=== PATIENT | male | born 1990 | race Caucasian/White ===

== ENCOUNTER 2017-08-10 18:29 | Emergency (ER) | payer BC, SELFPAY ==
[2017-08-10 18:30] VITALS: BP 171/102; PULSE 79; RESP 18; TEMP 37.2; O2SAT 99; BMI 35.0
--- NOTE | 2017-08-10 18:44 | CT_ITS ---
STUDY: CT ABDOMEN AND PELVIS WITHOUT CONTRAST REASON FOR EXAM: Male, 27 years old. Right flank pain RADIATION DOSAGE (If Supplied By Facility): CTDIvol = ( 19.17 ) mGy, DLP = ( 1029.68 ) mGycm TECHNIQUE: Transaxial images were obtained from the dome of the diaphragm to the symphysis pubis without oral contrast, and without intravenous contrast. Sagittal and coronal images were reconstructed. Individualized dose optimization techniques were used for this CT. COMPARISON: None. FINDINGS: The visualized lung bases are unremarkable. The visualized portions of the heart are within normal limits. There is a mildly enlarged periesophageal lymph node just proximal to the thoracoabdominal hiatus. There is also a small node in the vicinity of the celiac artery origin Normal liver. Normal gallbladder and extrahepatic biliary system. Nonspecific prominence of the spleen. Normal pancreas. Normal bilateral adrenal glands. Mild right renal pelvocaliectasis and dilatation of the proximal ureter secondary to a calculus in the mid ureter measuring approximately 3.5 mm size Normal left kidney. Normal visualized stomach. Normal small intestine. Normal colon. The appendix is visualized and appears normal. Normal abdominal aorta. Normal inferior vena cava. Normal retroperitoneum. Incompletely distended diffusely thick-walled bladder of uncertain significance. Moderate-sized left inguinal hernia containing fat is noted.. Normal osseous structures. CT/Abdomen/Pelvis without Cont IMPRESSION: Mild right hydroureteronephrosis secondary to a calculus in the mid ureter measuring approximately 3.5 mm.. Incidental finding of nonspecific splenomegaly and mildly enlarged nodes. Clinical correlation recommended Electronically Signed: Kavhe Valera MD at 19:54 EDT , Service support ,
[2017-08-10] MEDS: 0.9% Normal Saline 1,000 ML 250 ML IV (18:48)
[2017-08-10] MEDS: Ondansetron 4 MG/2 ML Vial IV (18:48)
[2017-08-10] MEDS: Ketorolac 30 MG/ML Syringe IV (18:50)
[2017-08-10] MEDS: Morphine 4 MG/ML Syringe IV ×2 (18:50→22:11)
[2017-08-10 20:43] LABS: Absolute Neutrophil Count 5.3 X10^3/uL (2.0-7.7); Basophil# 0.01 X10^3/uL; Basophil% 0.1 % (0-1); Eosinophil# 0.16 X10^3/uL; Eosinophils% 1.8 % (0-5); Hematocrit 42.3 % (40-54); Hemoglobin 15.2 g/dl (13.0-16.5); Lymphocyte % 27.6 % (19-41); Mean Corp Hgb Conc 35.9 g/gl (32-36); Mean Corpuscular Volume 83.4 fL (80-94); Mean Platelet Vol. 11.3 fl (6.2-12.0); Monocyte# 0.79 X10^3/uL; Monocyte% 9.1 % (0-10); Neutrophil # 5.32 X10^3/uL (2.7-7.7); Neutrophil % 61.3 % (47-70); Platelet Count 226 K/mm3 (150-450); RBC Distribution Width CV 12.9 % (11.6-14.6); RBC Distribution Width SD 38.8 fl (35.1-43.9); Red Blood Count 5.07 M/mm3 (4.6-6.2); White Blood Count 8.7 K/mm3 (4.4-11.0)
[2017-08-10 20:49] LABS: POSITIVE COUNT NO; POSITIVE DIFFERENTIAL NO; POSITIVE MORPHOLOGY NO
[2017-08-10 20:49] LABS: Bacteria 0 SEEN /hpf (None Seen); Squamous Epithelial Cells - UA 0 SEEN /hpf (0-5)
[2017-08-10 20:52] LABS: Color, Urine Yellow (Yellow); Glucose, Dipstick Normal (Normal); Ketone-Dipstick Negative (Negative); Leukocyte Esterase-Dipstick 25 /ul (Negative); Nitrite-Dipstick Negative (Negative); Occult Blood-Urine 250 /ul (Negative); Protein-Dipstick 30 mg/dl (Negative); Specific Gravity, Urine 1.025 (1.002-1.030); Urine Bilirubin Dipstick 1 mg/dL (Negative); Urine Clarity Clear (Clear); Urine Urobilinogen 1 mg/dl (Normal)
[2017-08-10 20:53] LABS: Anion Gap 8 (5-15); BUN 17 mg/dL (7-18); BUN/Creat Ratio 14.3 RATIO (10-20); Calcium,Total 8.8 mg/dL (8.5-10.1); Chloride 107 mmol/L (98-107); Creatinine, Serum 1.19 mg/dL (0.70-1.30); EST Glomerular Filtration Rate 77 mL/min (>60); Est Glom Filt Rate - Afr Amer 93 mL/min (>60); Estimated Creatinine Clearance 103.51 ml/min; Glucose 116 mg/dL (74-106); Potassium 3.6 mmol/L (3.5-5.1); Sodium Level 141 mmol/L (136-145)
[2017-08-10 21:00] LABS: Red Blood Cells-Urine 25-50 SEEN /hpf (0-5); White Blood Cells 0-5 SEEN /hpf (0-5)
[2017-08-10 21:01] LABS: Mucous, Urine 2+ /hpf (<or=2+)
--- NOTE | 2017-08-10 21:45 | ED.VISSUMM ---
- ER Visit Summary Date of Service: 08/10/17 Chief Complaint: Right flank pain History of Present Illness: The patient is a 27 M with no primary care physician. Reports she has right flank pain that began approximately 1 hour ago. Is gradually gotten worse. Is a sharp pain is 10 out of 10 at worst 9 out of 10 currently. Is worsened by nothing relieved by nothing. Is been nausea and vomited once. No blood in his emesis. Last bowel was today. No melena or hematochezia. No dysuria frequency. No fever or chills. Does have a family history of kidney stones. No personal history of kidney stones. Physical Examination: Vitals: Stable. Afebrile. General: Well-nourished and well-developed. Head: Normocephalic atraumatic. Neck: Supple, no lymphadenopathy. No JVD. Nontender. Cardiovascular: Regular rate and rhythm. No murmurs. Respiratory: No respiratory distress. Clear to auscultation bilaterally. Abdominal: Soft, nontender, nondistended, normal bowel sounds. No guarding, rebound, or peritoneal signs. Back: Nontender. Extremities: Nontender, no edema. Skin: Normal color, no rash. Neurologic: Alert and oriented ?3. Cranial nerves II through XII are intact. Normal strength and sensation. Psych: Normal affect. Test Results: CT flank shows mild right hydroureteronephrosis secondary to a calculus in the mid ureter that is 3 mm. Also hepatosplenomegaly and mildly enlarged paraesophageal lymph node just proximal to the thoracal abdominal hiatus. Small node in the vicinity of the origin of the celiac artery. CBC is normal. Chem-7 is more for glucose 116. UA shows blood but no evidence of infection. Emergency Department Course and Treatment: She was treated morphine, Toradol, and Zofran IV. He is resting comfortably. Treatment Plan: I discussed with him that I do not have an expiration for these enlarged lymph nodes. He will be discharged instructions from Dr. Jean Marie Boone for further evaluation of this. He is instructed to follow Dr. Nunes in 1 week if he does not pass the stone. He will be discharged with Percocet, naproxen, and Zofran. Return to the emergency department for any worsening symptoms. Disposition: To home in improved and stable condition. Impression: 1. Left ureterolithiasis. 2. Splenomegaly. 3. Enlarged paraesophageal lymph node. This note was generated with [employer] dictation software. It may contain incorrect words, spelling, and punctuation that were not noted in review of the chart prior to signing ED Disposition - Plan for ED Patient: Disposition: Home or Assisted Living Chief Complaint: Flank Pain Instructions: ED Stone Renal W Colic Prescriptions: Oxycodone HCl/Acetaminophen [Percocet 5/325] 1 tablet PO Q6H PRN PRN 5 Days #20 tablet PRN Reason: Pain Ondansetron [Zofran Odt] 4 mg PO Q8H PRN PRN #10 tablet PRN Reason: Nausea Naproxen [Naprosyn] 500 mg PO BID #14 tablet Referrals: Jean Marie Boone MD [STAFF PHYSICIAN] - 1-2 Weeks Cedric Nunes MD [STAFF PHYSICIAN] - 1 Week if not improving
[2017-08-10] MEDS: oxyCODONE 5 MG Tablet PO (22:14)
[2017-08-10 22:18] VITALS: BP 148/85; PULSE 78; RESP 16; O2SAT 98
== END 2017-08-10 22:23 | disposition home or self-care (01) ==
LOC: ED 19:08
PROVIDERS: Emergency Provider Emergency Medicine
DX: N13.2 Hydronephrosis with renal and ureteral calculous obstruction (principal); R16.1 Splenomegaly, not elsewhere classified; R59.0 Localized enlarged lymph nodes
CPT/HCPCS: 74176; 80048; 81001; 85025; 96361; 96374; 96375; 96376; 99283; A4216; J2405

== ENCOUNTER → 2017-08-18 08:48 | Outpatient (CLI) | payer BC, SELFPAY ==
--- NOTE | 2017-08-18 08:48 | DT_ITS ---
This patient was seen during an EMR downtime August 15, 2017 - August 22, 2017. This patient may have a combination of paper and electronic documentation or all paper documentation. All documentation is viewable within the e-chart portion of [employer] for each patient visit.
[2017-08-21 07:01] LABS: Bacteria 0 SEEN /hpf (None Seen); Mucous, Urine 0 SEEN /hpf (<or=2+); Red Blood Cells-Urine 0 SEEN /hpf (0-5); Squamous Epithelial Cells - UA 0 SEEN /hpf (0-5); White Blood Cells 0 SEEN /hpf (0-5)
[2017-08-23 01:57] LABS: ALB/GLOB Ratio 1.4 RATIO (0.9-2.4); AST(SGOT) 28 U/L (15-37); Alanine Aminotransfer ALT/SGPT 70 U/L (16-61); Albumin, Serum 4.4 g/dL (3.2-5.0); Alkaline Phosphatase 85 U/L (45-117); BUN 12 mg/dL (7-18); BUN/Creat Ratio 12.2 RATIO (10-20); Calcium,Total 8.6 mg/dL (8.5-10.1); Creatinine, Serum 0.98 mg/dL (0.70-1.30); EST Glomerular Filtration Rate 96 mL/min (>60); Est Glom Filt Rate - Afr Amer 116 mL/min (>60); Globulin 3.1 g/dL (2.2-4.2); Glucose 93 mg/dL (74-106); Protein, Total 7.5 g/dL (6.4-8.2)
[2017-08-23 01:58] LABS: Anion Gap 8 (5-15); Chloride 108 mmol/L (98-107); Potassium 4.4 mmol/L (3.5-5.1); Sodium Level 142 mmol/L (136-145); Thyroid Stim Hormone (TSH) 2.71 uIU/mL (0.358-3.74)
[2017-08-23 03:11] LABS: Color, Urine Yellow (Yellow); Glucose, Dipstick NEGATIVE (Normal); Ketone-Dipstick Negative (Negative); Leukocyte Esterase-Dipstick Negative /ul (Negative); Nitrite-Dipstick Negative (Negative); Occult Blood-Urine Negative /ul (Negative); Protein-Dipstick Negative (Negative); Specific Gravity, Urine 1.005 (1.002-1.030); Urine Bilirubin Dipstick Negative (Negative); Urine Clarity Clear (Clear); Urine Urobilinogen Normal (Normal)
[2017-08-23 03:12] LABS: Hematocrit 41.1 % (40-54); Hemoglobin 14.2 g/dl (13.0-16.5); Mean Corp Hgb Conc 34.5 g/gl (32-36); Mean Corpuscular Hgb 28.9 pg (27.0-32.0); Mean Corpuscular Volume 83.5 fL (80-94); Red Blood Count 4.92 M/mm3 (4.6-6.2); White Blood Count 5.3 K/mm3 (4.4-11.0)
[2017-08-23 03:13] LABS: Absolute Lymphocyte Count 1.64 X10^3/ul (0.83-4.51); Absolute Neutrophil Count 3.1 X10^3/uL (2.0-7.7); Basophil# 0.03 X10^3/uL; Basophil% 0.6 % (0-1); Eosinophil# 0.12 X10^3/uL; Eosinophils% 2.3 % (0-5); Lymphocyte # 1.64 X10^3/ul (4.0); Lymphocyte % 31.1 % (19-41); Mean Platelet Vol. 11.4 fl (6.2-12.0); Monocyte# 0.42 X10^3/uL; Neutrophil # 3.06 X10^3/uL (2.7-7.7); Neutrophil % 57.8 % (47-70); POSITIVE COUNT NO; POSITIVE DIFFERENTIAL NO; POSITIVE MORPHOLOGY NO; Platelet Count 223 K/mm3 (150-450); RBC Distribution Width CV 12.5 % (11.6-14.6); RBC Distribution Width SD 37.7 fl (35.1-43.9)
== END ==
PROVIDERS: Visit Provider Family Medicine
DX: R03.0 Elevated blood-pressure reading, without diagnosis of hypertension (principal); E66.9 Obesity, unspecified
CPT/HCPCS: 36415; 80053; 81001; 84443; 85025

== ENCOUNTER → 2017-08-18 08:54 | Outpatient (CLI) | payer BC, SELFPAY ==
--- NOTE | 2017-08-18 08:54 | DT_ITS ---
This patient was seen during an EMR downtime August 15, 2017 - August 22, 2017. This patient may have a combination of paper and electronic documentation or all paper documentation. All documentation is viewable within the e-chart portion of [employer] for each patient visit.
--- NOTE | 2017-08-18 08:59 | RAD_ITS ---
STUDY: X-RAY - ABDOMEN/PELVIS REASON FOR EXAM: Male, 27 years old. Follow-up right-sided kidney stone. TECHNIQUE: Two AP supine views of the abdomen and pelvis. COMPARISON: CT of the abdomen and pelvis, August 10, 2017. FINDINGS: Normal visualized lung bases. There is an unremarkable bowel gas pattern. There is no demonstrated free abdominal air. The visualized liver, spleen and kidneys are grossly normal in size and morphology. The right ureteral calculus noted on CT is not appreciated on the current examination. There is a stable right-sided phlebolith. Normal visualized osseous structures. RAD/Abdomen Single View IMPRESSION: Nonvisualization the right ureteral calculus seen on the prior CT. There is no acute cardiopulmonary process. Electronically Signed: Asad Bah DO at 10:05 EDT Tel [phone], Service support ,
== END ==
PROVIDERS: Visit Provider Family Medicine
DX: N20.0 Calculus of kidney (principal)
CPT/HCPCS: 74018

== ENCOUNTER → 2017-09-02 08:36 | Outpatient (CLI) | payer BC, SELFPAY ==
[2017-09-02 10:27] LABS: ALB/GLOB Ratio 1.5 RATIO (0.9-2.4); AST(SGOT) 23 U/L (15-37); Alanine Aminotransfer ALT/SGPT 50 U/L (16-61); Albumin, Serum 4.3 g/dL (3.2-5.0); Alkaline Phosphatase 82 U/L (45-117); Anion Gap 5 (5-15); BUN 12 mg/dL (7-18); BUN/Creat Ratio 11.3 RATIO (10-20); Chloride 109 mmol/L (98-107); Creatinine, Serum 1.06 mg/dL (0.70-1.30); EST Glomerular Filtration Rate 88 mL/min (>60); Est Glom Filt Rate - Afr Amer 106 mL/min (>60); Globulin 2.9 g/dL (2.2-4.2); Glucose 112 mg/dL (74-106); Potassium 3.9 mmol/L (3.5-5.1); Protein, Total 7.2 g/dL (6.4-8.2); Sodium Level 144 mmol/L (136-145)
[2017-09-03 09:27] LABS: HEPATITIS B SURFACE AG Negative (Negative); Hep B Surface Antibodies Reactive (.); Hep C Antibodies <0.1 s/co ratio (0.0-0.9)
== END ==
PROVIDERS: Family Provider Family Medicine; PCP Family Medicine; Visit Provider Family Medicine
DX: R79.89 Other specified abnormal findings of blood chemistry (principal)
CPT/HCPCS: 36415; 80053; 86706; 86803; 87340

== ENCOUNTER → 2017-09-09 07:41 | Outpatient (CLI) | payer BC, SELFPAY ==
--- NOTE | 2017-09-09 07:48 | RDU_ITS ---
Reason For Study: HYPERTENSION Right Renal Artery Left Renal Artery Right renal artery ostium Left renal artery ostium 125.0/28.3 150.0/45.6 RSV/EDV. PSV/EDV. Right renal artery proximal Left renal artery proximal PSV/EDV 132.0/35.6 PSV/EDV. 83.7/26.9 . Right renal artery mid 123.0/31.0 Left renal artery mid 91.7/26.3 PSV/EDV. PSV/EDV . Right renal artery distal 99.4/33.7 Left renal artery distal 77.0/27.5 PSV/EDV. PSV/EDV. Right Renal Parenchyma Left Renal Parenchyma Upper Pole Medula 43.8/17.3 Left upper pole medulla 40.6/12.8 PSV/EDV. PSV/EDV . Right upper pole medulla EDR .39 . Left upper pole medulla EDR .32 . Right upper pole medulla R.I. .60 . Left upper pole medulla R.I. .68 . Upper Roby Cortx 38.3/12.3 PSV/EDV. UP Cortex 33.3/12.8 PSV/EDV. Right upper pole cortex EDR .32 . Left upper pole cortex EDR .38 . Right upper pole cortex R.I. .68 . Left upper pole cortex R.I. .61 . Right lower Pole medulla 31.0/10.9 Left lower Pole medulla 27.2/10.1 PSV/EDV . PSV/EDV . Right lower pole medulla EDR .35 . Left lower pole medulla EDR .37 . Right lower pole medulla R.I. .65 . Left lower pole medulla R.I. .63 . Lower Pole Cortex 17.6/5.7 PSV/EDV. Lower Pole Cortx 28.4/10.4 PSV/EDV. Right lower pole cortex EDR .32 . Left lower pole cortex EDR .37 . Right Renal Hilar Left lower pole cortex R.I. .63 . Right Hilar avg 69.1/15.9 PSV/EDV. Left Renal Hilar Right hilar acceleration time 59 LT Hilar avg 44.9/12.5 PSV/EDV . m/sec. Left hilar acceleration time 59 Right Renal Dimensions m/sec. Right kidney size 11.4 cm . Left Renal Dimensions Right cortical dimension 1.6 cm . Left kidney size 11.7 cm . Left cortical dimension 1.6 cm . Aorta Proximal abdominal aorta 1.6 X 1.7 cm . Distal abdominal aorta 1.7 X 1.6 cm . Proximal abdominal aorta peak systolic velocity is 116.0 cm/sec . Distal abdominal aorta peak systolic velocity is 133.0 cm/sec . Interpretation Summary Dimensions of the intra-abdominal aorta appear normal, without evidence of aneurysmal dilatation. Renal artery velocities are bilaterally normal. Acceleration times are normal bilaterally. There is no evidence of hemodynamically significant renal artery stenosis on either side. Renovascular resistance appears to be bilaterally normal . The right cortical dimension is increased. The left cortical dimension is increased. Kidneys appear normal in size bilaterally. Ordering Physician: Jean Marie Jj Referring Physician: Jean Marie Jj Performed By: Milli Muhammad RVT
--- NOTE | 2017-09-09 08:16 | US_ITS ---
STUDY: RENAL ULTRASOUND - COMPLETE REASON FOR EXAM: Male, 27 years old. The patient has a history of hypertension. TECHNIQUE: Ultrasound evaluation of the kidneys was performed with real-time and static orr-scale imaging. COMPARISON: Comparison is made with prior CT scan done and pelvis dated August 10, 2017. FINDINGS: RIGHT KIDNEY: Normal location of the right kidney, which is normal in size. The right kidney measures 10.9 cm x 6.1 cm x 5.6 cm. There is a normal cortex of the right kidney. The renal cortex measures 2.5 cm. There is no right renal mass or cyst. There are no right renal calculi. There is no right hydronephrosis. DISTAL RIGHT URETER: There is non-visualization of the distal right ureter. There is no demonstrated right ureterovesical junction calculus. There is no demonstrated right ureteral jet. LEFT KIDNEY: Normal location of the left kidney, which is normal in size. The left kidney measures 11.8 cm x 5.3 cm x 4.9 cm. There is a normal cortex of the left kidney. The renal cortex measures 1.8 cm. There is no left renal mass or cyst. There are no left renal calculi. There is no left hydronephrosis. DISTAL LEFT URETER: There is non-visualization of the distal left ureter. There is no demonstrated left ureterovesical junction calculus. There is a visualized left ureteral jet. BLADDER: The distended urinary bladder has a volume of 94 ml. There is a normal wall thickness of the distended urinary bladder. There is no demonstrated mass within the urinary bladder. There are no demonstrated bladder calculi. US/Kidney and Bladder IMPRESSION: Normal ultrasound of the kidneys and urinary bladder. Electronically Signed: Palomo Flores MD at 12:41 EDT Tel [phone], Service support ,
== END ==
PROVIDERS: Family Provider Family Medicine; PCP Family Medicine; Visit Provider Family Medicine
DX: I10 Essential (primary) hypertension (principal)
CPT/HCPCS: 76770; 93975

== ENCOUNTER → 2018-02-28 08:12 | Outpatient (CLI) | payer BC, SELFPAY ==
[2018-02-28 10:21] LABS: Anion Gap 11 (5-15); BUN 19 mg/dL (7-18); BUN/Creat Ratio 21.1 RATIO (10-20); Calcium,Total 9.1 mg/dL (8.5-10.1); Chloride 98 mmol/L (98-107); EST Glomerular Filtration Rate 106 mL/min (>60); Est Glom Filt Rate - Afr Amer 128 mL/min (>60); Glucose 86 mg/dL (74-106); Potassium 3.8 mmol/L (3.5-5.1); Sodium Level 138 mmol/L (136-145)
--- OUTSIDE RECORDS SUMMARY | 2018-06-01 12:58 | XMS RPT_ITS ---
:1990 Author Organization [facility] Care Team Providers Name Role Phone Zeferino Michaud Attending Unavailable Jean Marie Jj Primary Care Unavailable Primay Care Physicia, No Primary Care Unavailable Luis Armando Rizo Attending Unavailable Jean Marie Jj Attending Unavailable Jean Marie Jj Referring Unavailable Primay Care Physicia, No Primary Care Unavailable Jean Marie Jj Attending Unavailable Primay Care Physicia, No Primary Care Unavailable Jean Marie Jj Attending Unavailable Jean Marie Jj Primary Care Unavailable Jean Marie Jj Attending Unavailable Jean Marie Jj Referring Unavailable Jean Marie Jj Primary Care Unavailable PROBLEMS PROBLEMS DATE TYPE CONDITION / CODE ATTENDING STATUS SOURCE 09/07/2017 Unknown N20.0 - Calculus Jean Marie Jj of kidney / [facility] N20.0(ICD-10) Hospital Repository 09/08/2017 Unknown R03.0 - Elevated Jean Marie Jj blood-pressure [facility] reading, without Hospital diagnosis of Repository hypertension / R03.0(ICD-10) PROCEDURES PROCEDURES No Procedure Records FoundRESULTS RESULTS BASIC METABOLIC Collected: 02/28/2018 Status: F Source: [place] PROFILE (BMP) 8:13 AM [facility] REPOSITORY TYPE CODE TESTS RESULT OUT OF RANGE REFERENCE UNITS LAB L501.0100 74-106 mg/dL Normal GLU 86 Result Comment: Please note revised GLUCOSE reference range effective 2017. LAB L501.1000 7-18 mg/dL High BUN 19 LAB L501.1100 0.70-1.30 mg/dL Normal CREAT,SERUM 0.90 Result Comment: The validity of the calculated GFR AND GFRAA in patients over 70 years has not been determined. Clinical correlation is essential. LAB L501.1110 >60 mL/min Normal EST GFR 106 Result Comment: Non- GFR Calc LAB L501.1115 >60 mL/min Normal EST GFR - AA 128 Result Comment: GFR Calc LAB L501.1300 10-20 RATIO High BUN/CRE 21.1 LAB L501.2200 8.5-10.1 mg/dL CA Normal 9.1 LAB L501.5300 136-145 mmol/L NA Normal 138 LAB L501.5600 3.5-5.1 mmol/L K Normal 3.8 LAB L501.5900 98-107 mmol/L CL Normal 98 LAB L501.6100 21.0-32.0 mmol/L Normal CO2 29.0 LAB L501.6200 5-15 Normal GAP 11 Performed By: #### L500.2500 #### [facility] [place], [address] RENAL ARTERY DUPLEX Observed: 09/10/2017 Status: F Source: [place] 1:36 PM [facility] REPOSITORY [facility] Cardiovascular Services [address] [place] [address] Renal Artery Duplex Ultrasound 09/09/17 0751 MR#: [id number] Acct: [id number] Name: ALEN NIÑO Rep #: [id number] : 1990 27 From: Ac Rodriguez MD Attending Dr: Jean Marie Jj MD Status: REG CLI Ordering Dr: Jean Marie Jj MD Date: 09/09/17 Location: [facility] Sex: M C Admitted: Reason For Study: HYPERTENSION Right Renal Artery Left Renal Artery Right renal artery ostium Left renal artery ostium 125.0/28.3 150.0/45.6 RSV/EDV. PSV/EDV. Right renal artery proximal Left renal artery proximal PSV/EDV 132.0/35.6 PSV/EDV. 83.7/26.9 . Right renal artery mid 123.0/31.0 Left renal artery mid 91.7/26.3 PSV/EDV. PSV/EDV . Right renal artery distal 99.4/33.7 Left renal artery distal 77.0/27.5 PSV/EDV. PSV/EDV. Right Renal Parenchyma Left Renal Parenchyma Upper Pole Medula 43.8/17.3 Left upper pole medulla 40.6/12.8 PSV/EDV. PSV/EDV . Right upper pole medulla EDR .39 . Left upper pole medulla EDR .32 . Right upper pole medulla R.I. .60 . Left upper pole medulla R.I. .68 . Upper Roby Cortx 38.3/12.3 PSV/EDV. UP Cortex 33.3/12.8 PSV/EDV. Right upper pole cortex EDR .32 . Left upper pole cortex EDR .38 . Right upper pole cortex R.I. .68 . Left upper pole cortex R.I. .61 . Right lower Pole medulla 31.0/10.9 Left lower Pole medulla 27.2/10.1 PSV/EDV . PSV/EDV . Right lower pole medulla EDR .35 . Left lower pole medulla EDR .37 . Right lower pole medulla R.I. .65 . Left lower pole medulla R.I. .63 . Lower Pole Cortex 17.6/5.7 PSV/EDV. Lower Pole Cortx 28.4/10.4 PSV/EDV. Right lower pole cortex EDR .32 . Left lower pole cortex EDR .37 . Right Renal Hilar Left lower pole cortex R.I. .63 . Right Hilar avg 69.1/15.9 PSV/EDV. Left Renal Hilar Right hilar acceleration time 59 LT Hilar avg 44.9/12.5 PSV/EDV . m/sec. Left hilar acceleration time 59 Right Renal Dimensions m/sec. Right kidney size 11.4 cm . Left Renal Dimensions Right cortical dimension 1.6 cm . Left kidney size 11.7 cm . Left cortical dimension 1.6 cm . Aorta Proximal abdominal aorta 1.6 X 1.7 cm . Distal abdominal aorta 1.7 X 1.6 cm . Proximal abdominal aorta peak systolic velocity is 116.0 cm/sec . Distal abdominal aorta peak systolic velocity is 133.0 cm/sec . Interpretation Summary Dimensions of the intra-abdominal aorta appear normal, without evidence of aneurysmal dilatation. Renal artery velocities are bilaterally normal. Acceleration times are normal bilaterally. There is no evidence of hemodynamically significant renal artery stenosis on either side. Renovascular resistance appears to be bilaterally normal . The right cortical dimension is increased. The left cortical dimension is increased. Kidneys appear normal in size bilaterally. Ordering Physician: Jean Marie Jj Referring Physician: Jean Marie Jj Performed By: Milli Muhammad RVT 09/10/17 1335 Date Ac Rodriguez MD CC: Jean Marie Jj MD Date Dictated: 09/09/17 0751 Date Transcribed: 09/10/17 1335 Laundry Technician: Signed KIDNEY AND BLADDER Observed: 09/09/2017 Status: F Source: [place] 8:16 AM [facility] REPOSITORY [facility] Imaging Services [address] [place] [address] Kidney and Bladder MR#: [id number] Acct: [id number] Name: ALEN NIÑO Rep #: [id number] : 1990 M 27 From: Palomo Flores MD PCP: Jean Marie Jj MD Status: REG CLI Study: Kidney and Bladder Date of Exam: 09/09/17 Exam# [id number] Ordering Dr: Jean Marie Jj MD STUDY: RENAL ULTRASOUND - COMPLETE REASON FOR EXAM: Male, 27 years old. The patient has a history of hypertension. TECHNIQUE: Ultrasound evaluation of the kidneys was performed with real-time and static orr-scale imaging. COMPARISON: Comparison is made with prior CT scan done and pelvis dated August 10, 2017. FINDINGS: RIGHT KIDNEY: Normal location of the right kidney, which is normal in size. The right kidney measures 10.9 cm x 6.1 cm x 5.6 cm. There is a normal cortex of the right kidney. The renal cortex measures 2.5 cm. There is no right renal mass or cyst. There are no right renal calculi. There is no right hydronephrosis. DISTAL RIGHT URETER: There is non-visualization of the distal right ureter. There is no demonstrated right ureterovesical junction calculus. There is no demonstrated right ureteral jet. LEFT KIDNEY: Normal location of the left kidney, which is normal in size. The left kidney measures 11.8 cm x 5.3 cm x 4.9 cm. There is a normal cortex of the left kidney. The renal cortex measures 1.8 cm. There is no left renal mass or cyst. There are no left renal calculi. There is no left hydronephrosis. DISTAL LEFT URETER: There is non-visualization of the distal left ureter. There is no demonstrated left ureterovesical junction calculus. There is a visualized left ureteral jet. BLADDER: The distended urinary bladder has a volume of 94 ml. There is a normal wall thickness of the distended urinary bladder. There is no demonstrated mass within the urinary bladder. There are no demonstrated bladder calculi. US/Kidney and Bladder IMPRESSION: Normal ultrasound of the kidneys and urinary bladder. Electronically Signed: Palomo Flores MD at 12:41 EDT Tel [phone], Service support , CC: Jean Marie Jj MD Laundry Technician: Signed COMPREHENSIVE METABOLIC Collected: 09/02/2017 Status: F Source: [place] SINHA 8:37 AM [facility] REPOSITORY Order Comment: Order Date: 09/02/17 Order Info: 0786-1 - CMP TYPE CODE TESTS RESULT OUT OF RANGE REFERENCE UNITS LAB L501.0100 74-106 mg/dL High GLU 112 Result Comment: Fasting Glucose result from 100 to 125 mg/dL suggests IMPAIRED HOMEOSTASIS per A.D.A. criteria. Please note revised GLUCOSE reference range effective 2017. LAB L501.1000 7-18 mg/dL Normal BUN 12 LAB L501.1100 0.70-1.30 mg/dL Normal CREAT,SERUM 1.06 Result Comment: The validity of the calculated GFR AND GFRAA in patients over 70 years has not been determined. Clinical correlation is essential. LAB L501.1110 >60 mL/min Normal EST GFR 88 Result Comment: Non- GFR Calc LAB L501.1115 >60 mL/min Normal EST GFR - AA 106 Result Comment: GFR Calc LAB L501.1300 10-20 RATIO Normal BUN/CRE 11.3 LAB L501.1500 6.4-8.2 g/dL T Normal PROT 7.2 LAB L501.1800 3.2-5.0 g/dL Normal ALB 4.3 LAB L501.1950 2.2-4.2 g/dL Normal GLOB 2.9 LAB L501.2000 0.9-2.4 RATIO Normal A/G 1.5 LAB L501.2200 8.5-10.1 mg/dL CA Normal 9.0 LAB L501.4100 15-37 U/L Normal AST 23 LAB L501.4305 45-117 U/L Normal ALK P 82 LAB L501.4405 16-61 U/L Normal ALT 50 LAB L501.4600 0.20-1.00 mg/dL T Normal BILI 0.90 LAB L501.5300 136-145 mmol/L NA Normal 144 LAB L501.5600 3.5-5.1 mmol/L K Normal 3.9 LAB L501.5900 98-107 mmol/L High CL 109 LAB L501.6100 21.0-32.0 mmol/L Normal CO2 30.0 LAB L501.6200 5-15 Normal GAP 5 Performed By: #### L500.4050 #### [facility] [address] [place] [address], [address] #### L3100.0390, L3100.0528, L3100.0625 #### [facility] (refer to report for specific site) refer to report for address and phone number HEPATITIS B SURFACE Collected: 09/02/2017 Status: F Source: [place] AG 8:37 AM [facility] REPOSITORY Order Comment: Order Date: 09/02/17 Order Info: 0433-1 - HEBSAG Order Info: [id number] - HEBSAB Order Info: 0363-1 - HECAB TYPE CODE TESTS RESULT OUT OF RANGE REFERENCE UNITS LAB L3100.0400 Negative Normal HB Negative SURF AG Result Comment: Performed at: - [facility] [id number] Industrial Engineering Technician: Rene Mckeon PhD, Phone: [phone] Performed By: #### L500.4050 #### [facility] [address] [place] [address], [address] #### L3100.0390, L3100.0528, L3100.0625 #### [facility] (refer to report for specific site) refer to report for address and phone number HEP B SURFACE Collected: 09/02/2017 Status: F Source: [place] ANTIBODIES 8:37 AM [facility] REPOSITORY Order Comment: Order Date: 09/02/17 Order Info: 0433-1 - HEBSAG Order Info: [id number] - HEBSAB Order Info: 0363-1 - HECAB TYPE CODE TESTS RESULT OUT OF RANGE REFERENCE UNITS LAB L3100.0528 . Normal Hep B Reactive [place] AB Result Comment: Non Reactive: Inconsistent with immunity, less than 10 mIU/mL Reactive: Consistent with immunity, greater than 9.9 mIU/mL Performed By: #### L500.4050 #### [facility] [address] [facility] [place], [address] #### L3100.0390, L3100.0528, L3100.0625 #### [facility] (refer to report for specific site) refer to report for address and phone number HEPATITIS C ANTIBODIES Collected: 09/02/2017 Status: F Source: [place] 8:37 AM [facility] REPOSITORY Order Comment: Order Date: 09/02/17 Order Info: 0433-1 - HEBSAG Order Info: [id number] - HEBSAB Order Info: 0363-1 - HECAB TYPE CODE TESTS RESULT OUT OF RANGE REFERENCE UNITS LAB L3100.0650 0.0-0.9 s/co ratio Normal HEP C AB <0.1 Result Comment: Negative: < 0.8 Indeterminate: 0.8 - 0.9 Positive: > 0.9 The CDC recommends that a positive HCV antibody result be followed up with a HCV Nucleic Acid Amplification test (652388). Performed By: #### L500.4050 #### [facility] [facility] [place], [address] #### L3100.0390, L3100.0528, L3100.0625 #### [facility] (refer to report for specific site) refer to report for address and phone number DOWNTIME REPORT Observed: 09/01/2017 Status: F Source: [place] 1:40 PM [facility] REPOSITORY [facility] Medical Records Department [address] [place] [address] Downtime Report MR#: [id number] Acct: [id number] Name: ALEN NIÑO #: [id number] : 1990 27 From: Lance Boone PCP: Care Physician, No Primary Status: REG CLI This patient was seen during an EMR downtime August 15, 2017 - August 22, 2017. This patient may have a combination of paper and electronic documentation or all paper documentation. All documentation is viewable within the e-chart portion of [employer] for each patient visit. DOWNTIME REPORT Observed: 09/01/2017 Status: F Source: [place] 12:15 PM [facility] Medical Records Department [address] [place] [address] Downtime Report MR#: [id number] Acct: [id number] Name: ALEN NIÑO Rep #: [id number] : 1990 27 From: Lance Boone PCP: Care Physician, No Primary Status: REG CLI This patient was seen during an EMR downtime August 15, 2017 - August 22, 2017. This patient may have a combination of paper and electronic documentation or all paper documentation. All documentation is viewable within the e-chart portion of [facility] for each patient visit. ABDOMEN SINGLE VIEW Observed: 08/18/2017 Status: F Source: [place] 9:00 AM [facility] Imaging Services [address] [place] [address] Abdomen Single View MR#: [id number] Acct: [id number] Name: ALEN NIÑO Rep #: [id number] : 1990 M 27 From: Asad Bah DO PCP: Care Physician, No Primary Status: REG CLI Study: Abdomen Single View Date of Exam: 08/18/17 Exam# [id number] Ordering Dr: Jean Marie Jj MD STUDY: X-RAY - ABDOMEN/PELVIS REASON FOR EXAM: Male, 27 years old. Follow-up right-sided kidney stone. TECHNIQUE: Two AP supine views of the abdomen and pelvis. COMPARISON: CT of the abdomen and pelvis, August 10, 2017. FINDINGS: Normal visualized lung bases. There is an unremarkable bowel gas pattern. There is no demonstrated free abdominal air. The visualized liver, spleen and kidneys are grossly normal in size and morphology. The right ureteral calculus noted on CT is not appreciated on the current examination. There is a stable right-sided phlebolith. Normal visualized osseous structures. RAD/Abdomen Single View IMPRESSION: Nonvisualization the right ureteral calculus seen on the prior CT. There is no acute cardiopulmonary process. Electronically Signed: Asad Bah DO at 10:05 EDT Tel [phone], Service support , CC: No Primary Care Physician; Jean Marie Jj MD Laundry Technician: Signed COMPREHENSIVE METABOLIC Collected: 08/18/2017 Status: F Source: [facility] 8:48 AM [facility] REPOSITORY Order Comment: RESULT(S) PREVIOUSLY REPORTED ON MANUAL REQUISITION DURING DOWNTIME. TYPE CODE TESTS RESULT OUT OF RANGE REFERENCE UNITS LAB L501.0100 74-106 mg/dL Normal GLU 93 Result Comment: Please note revised GLUCOSE reference range effective 2017. LAB L501.1000 7-18 mg/dL Normal BUN 12 LAB L501.1100 0.70-1.30 mg/dL Normal CREAT,SERUM 0.98 Result Comment: The validity of the calculated GFR AND GFRAA in patients over 70 years has not been determined. Clinical correlation is essential. LAB L501.1110 >60 mL/min Normal EST GFR 96 LAB L501.1115 >60 mL/min Normal EST GFR - AA 116 LAB L501.1300 10-20 RATIO Normal BUN/CRE 12.2 LAB L501.1500 6.4-8.2 g/dL Normal T PROT 7.5 LAB L501.1800 3.2-5.0 g/dL Normal ALB 4.4 LAB L501.1950 2.2-4.2 g/dL Normal GLOB 3.1 LAB L501.2000 0.9-2.4 RATIO Normal A/G 1.4 LAB L501.2200 8.5-10.1 mg/dL Normal CA 8.6 LAB L501.4100 15-37 U/L Normal AST 28 LAB L501.4305 45-117 U/L Normal ALK P 85 LAB L501.4405 16-61 U/L High ALT 70 LAB L501.4600 0.20-1.00 mg/dL Normal T BILI 0.60 LAB L501.5300 136-145 mmol/L Normal NA 142 LAB L501.5600 3.5-5.1 mmol/L Normal K 4.4 LAB L501.5900 98-107 mmol/L High CL 108 LAB L501.6100 21.0-32.0 mmol/L Normal CO2 26.0 LAB L501.6200 5-15 Normal GAP 8 Performed By: #### L500.4050, L501.9520 #### [facility] [address] [facility] [place], [address] THYROID STIM HORMONE Collected: 08/18/2017 Status: F Source: [place] (T[facility]) 8:48 AM [facility] REPOSITORY Order Comment: RESULT(S) PREVIOUSLY REPORTED ON MANUAL REQUISITION DURING DOWNTIME. TYPE CODE TESTS RESULT OUT OF RANGE REFERENCE UNITS LAB L501.9520 0.358-3.74 uIU/mL Normal TSH 2.71 Performed By: #### L500.4050, L501.9520 #### [facility] [address] [place], [address] URINALYSIS, COMPLETE Collected: 08/18/2017 Status: F Source: [place] 8:48 AM [facility] REPOSITORY Order Comment: RESULT(S) PREVIOUSLY REPORTED ON MANUAL REQUISITION DURING DOWNTIME. How was Urine Obtained? CLEAN CATCH TYPE CODE TESTS RESULT OUT OF RANGE REFERENCE UNITS LAB L400.3000 Yellow COLOR Normal Yellow LAB L400.3050 Clear Normal CLARITY Clear LAB L400.3200 Normal mg/dl Normal GLUCOSE, UR NEGATIVE LAB L400.3300 Negative mg/dL Normal BILIRUBIN URINE Negative LAB L400.3400 Negative mg/dl Normal KETONE UR Negative LAB L400.3465 1.002-1.030 Normal SP.GR. DIPSTX 1.005 LAB L400.3550 5.0 - 8.0 pH UR Normal 7.0 LAB L400.3600 Negative mg/dl PROT Normal DIPSTX Negative LAB L400.3700 Normal mg/dl Normal UROBILI Normal LAB L400.3750 Negative Normal NITRITE UR Negative LAB L400.3780 Negative /ul Normal OCCULT BLOOD-UR Negative LAB L400.3800 Negative /ul LEUK Normal ESTERASE Negative LAB L400.4050 0-5 /hpf WBC 0 Normal SEEN LAB L400.4100 0-5 /hpf 0 Normal RBC-UA SEEN LAB L400.4150 0-5 /hpf SQUAM 0 Normal EPI SEEN LAB L400.4300 None Seen /hpf 0 Normal BACTERIA SEEN LAB L400.4350 <or=2+ /hpf 0 Normal MUCUS, URINE SEEN Performed By: #### L400.0001 #### [facility] [address] [place], [place], [id number] CBC W/DIFF, AUTOMATED Collected: 08/18/2017 Status: F Source: [place] 8:48 AM [facility] REPOSITORY Order Comment: RESULT(S) PREVIOUSLY REPORTED ON MANUAL REQUISITION DURING DOWNTIME. TYPE CODE TESTS RESULT OUT OF RANGE REFERENCE UNITS LAB L100.1000 4.4-11.0 K/mm3 Normal WBC 5.3 LAB L100.1200 4.6-6.2 M/mm3 Normal RBC 4.92 LAB L100.1300 13.0-16.5 g/dl Normal HGB 14.2 LAB L100.1400 40-54 % Normal HCT 41.1 LAB L100.1500 80-94 fL Normal MCV 83.5 LAB L100.1600 27.0-32.0 pg Normal MCH 28.9 LAB L100.1700 32-36 g/gl Normal MCHC 34.5 LAB L100.1810 11.6-14.6 % Normal RDW CV 12.5 LAB L100.1820 35.1-43.9 fl Normal RDW SD 37.7 LAB L100.1900 150-450 K/mm3 Normal PLT 223 LAB L100.2000 6.2-12.0 fl Normal MPV 11.4 LAB L100.2100 47-70 % Normal NEUT% 57.8 LAB L100.2200 19-41 % Normal LY% 31.1 LAB L100.2300 0-10 % Normal MONO% 8.0 LAB L100.2400 0-5 % Normal EO% 2.3 LAB L100.2500 0-1 % Normal BASO% 0.6 LAB L100.2550 0.0-0.9 % Normal IM GRAN % 0.200 Result Comment: IG% - Immature Granulocytes (promyelocytes, myelocytes and metamyelocytes) > 1% indicates that a LEFT SHIFT is Present. LAB L100.2620 2.0-7.7 X10 3/uL Normal Absolute Neut 3.1 LAB L100.2720 0.83-4.51 X10 3/ul Normal Absolute Lymph 1.64 Performed By: #### L100.0100 #### [facility] [address] [place], [address] EMERGENCY DEPARTMENT Observed: 08/11/2017 Status: F Source: [place] SUMMARY 12:48 AM [facility] REPOSITORY [facility] Medical Records Department [address] [facility] [address] Emergency Department Summary 08/10/17 2145 MR#: [id number] Acct: [id number] Name: ALEN NIÑO Rep #: [id number] : 1990 27 From: Luis Armando Rizo MD PCP: Care Physician, No Primary Status: DEP ER - ER Visit Summary Date of Service: 08/10/17 Chief Complaint: Right flank pain History of Present Illness: The patient is a 27 M with no primary care physician. Reports she has right flank pain that began approximately 1 hour ago. Is gradually gotten worse. Is a sharp pain is 10 out of 10 at worst 9 out of 10 currently. Is worsened by nothing relieved by nothing. Is been nausea and vomited once. No blood in his emesis. Last bowel was today. No melena or hematochezia. No dysuria frequency. No fever or chills. Does have a family history of kidney stones. No personal history of kidney stones. Physical Examination: Vitals: Stable. Afebrile. General: Well-nourished and well-developed. Head: Normocephalic atraumatic. Neck: Supple, no lymphadenopathy. No JVD. Nontender. Cardiovascular: Regular rate and rhythm. No murmurs. Respiratory: No respiratory distress. Clear to auscultation bilaterally. Abdominal: Soft, nontender, nondistended, normal bowel sounds. No guarding, rebound, or peritoneal signs. Back: Nontender. Extremities: Nontender, no edema. Skin: Normal color, no rash. Neurologic: Alert and oriented 3. Cranial nerves II through XII are intact. Normal strength and sensation. Psych: Normal affect. Test Results: CT flank shows mild right hydroureteronephrosis secondary to a calculus in the mid ureter that is 3 mm. Also hepatosplenomegaly and mildly enlarged paraesophageal lymph node just proximal to the thoracal abdominal hiatus. Small node in the vicinity of the origin of the celiac artery. CBC is normal. Chem-7 is more for glucose 116. UA shows blood but no evidence of infection. Emergency Department Course and Treatment: She was treated morphine, Toradol, and Zofran IV. He is resting comfortably. Treatment Plan: I discussed with him that I do not have an expiration for these enlarged lymph nodes. He will be discharged instructions from Dr. Jean Marie Boone for further evaluation of this. He is instructed to follow Dr. Nunes in 1 week if he does not pass the stone. He will be discharged with Percocet, naproxen, and Zofran. Return to the emergency department for any worsening symptoms. Disposition: To home in improved and stable condition. Impression: 1. Left ureterolithiasis. 2. Splenomegaly. 3. Enlarged paraesophageal lymph node. This note was generated with [employer] dictation software. It may contain incorrect words, spelling, and punctuation that were not noted in review of the chart prior to signing ED Disposition - Plan for ED Patient: Disposition: Home or Assisted Living Chief Complaint: Flank Pain Instructions: ED Stone Renal W Colic Prescriptions: Oxycodone HCl/Acetaminophen [Percocet 5/325] 1 tablet PO Q6H PRN PRN 5 Days #20 tablet PRN Reason: Pain Ondansetron [Zofran Odt] 4 mg PO Q8H PRN PRN #10 tablet PRN Reason: Nausea Naproxen [Naprosyn] 500 mg PO BID #14 tablet Referrals: Jean Marie Boone MD [STAFF PHYSICIAN] - 1-2 Weeks Cedric Nunes MD [STAFF PHYSICIAN] - 1 Week if not improving What to do if you have Problems For any increased pain, shortness of breath, bleeding, nausea or vomiting, chest pain, or any unexpected problems, contact your Primary Care Provider. Call [facility] ([phone]) or report to the closest Emergency Room. Call 911 if necessary. 08/11/17 0048 <Electronically signed by Luis Armando Rizo MD> Date Luis Armando Rizo MD Cosigner Signature (If Indicated): Date CC: No Primary Care Physician URINALYSIS, COMPLETE Collected: 08/10/2017 Status: F Source: [place] 8:40 PM [facility] REPOSITORY Order Comment: Order Date: 08/10/17 How was Urine Obtained? CLEAN CATCH TYPE CODE TESTS RESULT OUT OF RANGE REFERENCE UNITS LAB L400.3000 Yellow COLOR Normal Yellow LAB L400.3050 Clear Normal CLARITY Clear LAB L400.3200 Normal mg/dl Normal GLUCOSE, UR Normal LAB L400.3300 Negative mg/dL High BILIRUBIN URINE 1 Result Comment: COLOR OF URINE MAY AFFECT DIPSTICK RESULTS. LAB L400.3400 Negative mg/dl Normal KETONE UR Negative LAB L400.3465 1.002-1.030 Normal SP.GR. DIPSTX 1.025 LAB L400.3550 5.0 - 8.0 pH Normal UR 5.0 LAB L400.3600 Negative mg/dl High PROT DIPSTX 30 LAB L400.3700 Normal mg/dl High UROBILI 1 LAB L400.3750 Negative Normal NITRITE UR Negative LAB L400.3780 Negative /ul High OCCULT 250 BLOOD-UR LAB L400.3800 Negative /ul High LEUK ESTERASE 25 LAB L400.4050 0-5 /hpf Normal WBC 0-5 SEEN LAB L400.4100 0-5 /hpf Normal RBC-UA 25-50 SEEN LAB L400.4150 0-5 /hpf Normal SQUAM EPI 0 SEEN LAB L400.4300 None Seen /hpf Normal BACTERIA 0 SEEN LAB L400.4350 <or=2+ /hpf Normal MUCUS, URINE 2+ Performed By: #### L400.0001 #### [facility] [address] [place], [address] ABDOMEN/PELVIS WITHOUT Observed: 08/10/2017 Status: F Source: [place] CONT 6:45 PM [facility] REPOSITORY [facility] Imaging [place] [address] Abdomen/Pelvis without Cont MR#: [id number] Acct: [id number] Name: ALEN NIÑO Rep #: [id number] : 1990 M 27 From: Kaveh Valera MD PCP: Care Physician, No Primary Status: REG ER Study: Abdomen/Pelvis without Cont Date of Exam: 08/10/17 Exam# [id number] Ordering Dr: Luis Armando Rizo MD STUDY: CT ABDOMEN AND PELVIS WITHOUT CONTRAST REASON FOR EXAM: Male, 27 years old. Right flank pain RADIATION DOSAGE (If Supplied By Facility): CTDIvol = ( 19.17 ) mGy, DLP = ( 1029.68 ) mGycm TECHNIQUE: Transaxial images were obtained from the dome of the diaphragm to the symphysis pubis without oral contrast, and without intravenous contrast. Sagittal and coronal images were reconstructed. Individualized dose optimization techniques were used for this CT. COMPARISON: None. FINDINGS: The visualized lung bases are unremarkable. The visualized portions of the heart are within normal limits. There is a mildly enlarged periesophageal lymph node just proximal to the thoracoabdominal hiatus. There is also a small node in the vicinity of the celiac artery origin Normal liver. Normal gallbladder and extrahepatic biliary system. Nonspecific prominence of the spleen. Normal pancreas. Normal bilateral adrenal glands. Mild right renal pelvocaliectasis and dilatation of the proximal ureter secondary to a calculus in the mid ureter measuring approximately 3.5 mm size Normal left kidney. Normal visualized stomach. Normal small intestine. Normal colon. The appendix is visualized and appears normal. Normal abdominal aorta. Normal inferior vena cava. Normal retroperitoneum. Incompletely distended diffusely thick-walled bladder of uncertain significance. Moderate-sized left inguinal hernia containing fat is noted.. Normal osseous structures. CT/Abdomen/Pelvis without Cont IMPRESSION: Mild right hydroureteronephrosis secondary to a calculus in the mid ureter measuring approximately 3.5 mm.. Incidental finding of nonspecific splenomegaly and mildly enlarged nodes. Clinical correlation recommended Electronically Signed: Kaveh Valera MD at 19:54 EDT , Service support , CC: No Primary Care Physician; Luis Armando Rizo MD Laundry Technician: Signed CBC W/DIFF, AUTOMATED Collected: 08/10/2017 Status: F Source: DREW 6:39 PM [facility] REPOSITORY TYPE CODE TESTS RESULT OUT OF RANGE REFERENCE UNITS LAB L100.1000 4.4-11.0 K/mm3 Normal WBC 8.7 LAB L100.1200 4.6-6.2 M/mm3 Normal RBC 5.07 LAB L100.1300 13.0-16.5 g/dl Normal HGB 15.2 LAB L100.1400 40-54 % Normal HCT 42.3 LAB L100.1500 80-94 fL Normal MCV 83.4 LAB L100.1600 27.0-32.0 pg Normal MCH 30.0 LAB L100.1700 32-36 g/gl Normal MCHC 35.9 LAB L100.1810 11.6-14.6 % Normal RDW CV 12.9 LAB L100.1820 35.1-43.9 fl Normal RDW SD 38.8 LAB L100.1900 150-450 K/mm3 Normal PLT 226 LAB L100.2000 6.2-12.0 fl Normal MPV 11.3 LAB L100.2100 47-70 % Normal NEUT% 61.3 LAB L100.2200 19-41 % Normal LY% 27.6 LAB L100.2300 0-10 % Normal MONO% 9.1 LAB L100.2400 0-5 % Normal EO% 1.8 LAB L100.2500 0-1 % Normal BASO% 0.1 LAB L100.2550 0.0-0.9 % Normal IM GRAN % 0.100 Result Comment: IG% - Immature Granulocytes (promyelocytes, myelocytes and metamyelocytes) > 1% indicates that a LEFT SHIFT is Present. LAB L100.2620 2.0-7.7 X10 3/uL Normal Absolute Neut 5.3 LAB L100.2720 0.83-4.51 X10 3/ul Normal Absolute Lymph 2.40 Performed By: #### L100.0100 #### [facility] [address] [facility] [place], [address] BASIC METABOLIC Collected: 08/10/2017 Status: F Source: [place] [facility] ([facility]) 6:39 PM [facility] REPOSITORY TYPE CODE TESTS RESULT OUT OF RANGE REFERENCE UNITS LAB L501.0100 74-106 mg/dL High GLU 116 Result Comment: Fasting Glucose result from 100 to 125 mg/dL suggests IMPAIRED HOMEOSTASIS per A.D.A. criteria. Please note revised GLUCOSE reference range effective 2017. LAB L501.1000 7-18 mg/dL Normal BUN 17 LAB L501.1100 0.70-1.30 mg/dL Normal CREAT,SERUM 1.19 Result Comment: The validity of the calculated GFR AND GFRAA in patients over 70 years has not been determined. Clinical correlation is essential. LAB L501.1110 >60 mL/min Normal EST GFR 77 Result Comment: Non- GFR Calc LAB L501.1115 >60 mL/min Normal EST GFR - AA 93 Result Comment: GFR Calc LAB L501.1255 ml/min Normal Estimated CRCL 103.51 LAB L501.1300 10-20 RATIO BUN/CRE Normal 14.3 LAB L501.2200 8.5-10 mg/dL .1 CA Normal 8.8 LAB L501.5300 136-14 mmol/L 5 NA Normal 141 LAB L501.5600 3.5-5. mmol/L 1 K Normal 3.6 LAB L501.5900 98-107 mmol/L CL Normal 107 LAB L501.6100 21.0-3 mmol/L 2.0 CO2 Normal 26.0 LAB L501.6200 5-15 GAP Normal 8 Performed By: #### L500.2500 #### [facility] [address] [place], [address] ALLERGIES ALLERGIES DATE TYPE / CODE NAME / CODE REACTION SEVERITY SOURCE 08/10/2017 Drug No Known Unknown [facility] Allergy/4160 Allergies/F00 Hospital 80758(SNOMED [id number](RXNOR Repository CT) M) ENCOUNTERS ENCOUNTERS ADMIT/DISCHARGE ACCOUNT ADMITTING ENCOUNTER LOCATION SOURCE NUMBER CLASS 02/28/2018 [id number] Ambulatory [place] 2 [facility] ing:LAB.FUTUR Repository E 09/09/2017 [id number] Ambulatory Drew [place] 9 [facility] ing:CVS Repository 09/02/2017 [id number] Ambulatory [place] [facility] ing:MFPLAB Repository 08/18/2017 [id number] Ambulatory [place] 7 [facility] ing:MTRAD Repository 08/18/2017 [id number] Ambulatory [place] 8 [facility] ing:MFPLAB Repository 08/10/2017/ [id number] Emergency [place] 8 4 [facility] ing:ED Repository PAYERS PAYERS ENCOUNTER GUARANTOR PAYER SUBSCRIBER SOURCE 02/28/2018 ALEN E Primary ALEN E [place] [id number] Insurance:ANTHEMPolic HOUSEWORTHDOB: [facility] y Number: [id number] [id number] Repository 48548Zpx: [phone] frank Date:3705-47-85BZ [phone] () [address] [place] [address] 90546ZK: 02/28/2018 Secondary NOT GIVENUNK Drew Insurance:SELF PAY [facility] Number: Effective Repository Date:2018-02-22 09/09/2017 ALEN E Primary ALEN E [place] [id number] Insurance:ANTHEMPolic HOUSEWORTHDOB: [facility] y Number: [id number] [id number] Repository [address]Fuz: [phone] frank Date:3330-42-35ZL [phone] () [address] [place] [address] 09088NL: 09/09/2017 Secondary NOT GIVENUNK [place] Insurance:SELF PAY [facility] Number: Effective Repository Date:2017-09-05 09/02/2017 ALEN E Primary ALEN E Drew [id number] Insurance:ANTHEMPolic HOUSEWORTHDOB: [facility] y Number: [id number] [id number] Repository 688[address]Ddr: [phone]) frank Date:1066-65-29SX [phone] () [address], [place] [address]LF: 09/02/2017 Secondary NOT GIVENUNK Drew Insurance:SELF PAY [facility] Number: Effective Repository Date:2017-09-02 08/18/2017 ALEN E Primary ALEN E [place] [id number] Insurance:ANTHEMPolic HOUSEWORTHDOB: [facility] y Number: [id number], [place] [id number] Repository 17[address]Xou: [phone] frank Date:6856-20-05XP [phone] () [address], [place] [address]GJ: 08/18/2017 Secondary NOT GIVENUNK Drew Insurance:SELF PAY [facility] Number: Effective Repository Date:2017-08-18 08/18/2017 ALEN E Primary ALEN E Drew [id number] Insurance:ANTHEMPolic HOUSEWORTHDOB: [facility] y Number: [id number] [id number] Repository [address]Mmu: [phone]) frank Date:8513-09-42KC [phone] () [address] [address]PB: 08/18/2017 Secondary NOT GIVENUNK [place] Insurance:SELF PAY [facility] Number: Effective Repository Date:2017-08-18 08/10/2017 ALEN E Primary ALEN E Drew [id number] Insurance:ANTHEMPolic HOUSEWORTHDOB: [facility] y Number: [id number], [place] [id number] Repository [address]Zaa: [phone]) frank Date:4567-28-91GB [phone] () [address]PTSD[address] [address]TS: 08/10/2017 Secondary NOT GIVENUNK Drew Insurance:SELF PAY [facility] Number: Effective Repository Date:2017-08-10
== END ==
PROVIDERS: Family Provider Family Medicine; PCP Family Medicine; Visit Provider Family Medicine
DX: I10 Essential (primary) hypertension (principal)
CPT/HCPCS: 36415; 80048

== ENCOUNTER → 2018-05-18 08:06 | Outpatient (CLI) | payer BC, SELFPAY ==
[2018-05-18 10:21] LABS: Anion Gap 8 (5-15); BUN 18 mg/dL (7-18); BUN/Creat Ratio 19.5 RATIO (10-20); Calcium,Total 9.3 mg/dL (8.5-10.1); Chloride 100 mmol/L (98-107); Creatinine, Serum 0.92 mg/dL (0.70-1.30); EST Glomerular Filtration Rate 102 mL/min (>60); Est Glom Filt Rate - Afr Amer 124 mL/min (>60); Glucose 96 mg/dL (74-106); Potassium 3.9 mmol/L (3.5-5.1); Sodium Level 135 mmol/L (136-145)
== END ==
PROVIDERS: Family Provider Family Medicine; PCP Family Medicine; Referring Provider Family Medicine; Visit Provider Family Medicine
DX: I10 Essential (primary) hypertension (principal)
CPT/HCPCS: 36415; 80048

== ENCOUNTER → 2018-05-22 09:36 | Outpatient (CLI) | payer BC, SELFPAY ==
[2018-05-22 13:18] LABS: Anion Gap 11 (5-15); BUN 17 mg/dL (7-18); BUN/Creat Ratio 17.7 RATIO (10-20); Calcium,Total 9.1 mg/dL (8.5-10.1); Chloride 103 mmol/L (98-107); Creatinine, Serum 0.96 mg/dL (0.70-1.30); EST Glomerular Filtration Rate 98 mL/min (>60); Est Glom Filt Rate - Afr Amer 118 mL/min (>60); Glucose 85 mg/dL (74-106); Potassium 3.6 mmol/L (3.5-5.1); Sodium Level 141 mmol/L (136-145); Uric Acid 8.7 mg/dL (3.5-7.2)
== END ==
PROVIDERS: Family Provider Family Medicine; PCP Family Medicine; Visit Provider Family Medicine
DX: M10.9 Gout, unspecified (principal)
CPT/HCPCS: 36415; 80048; 84550

== ENCOUNTER → 2018-08-17 | Outpatient (CLI) | payer BC, SELFPAY ==
[2018-08-17 10:40] LABS: ALB/GLOB Ratio 1.7 RATIO (0.9-2.4); AST(SGOT) 28 U/L (15-37); Alanine Aminotransfer ALT/SGPT 53 U/L (16-61); Albumin, Serum 4.4 g/dL (3.2-5.0); Alkaline Phosphatase 86 U/L (45-117); Anion Gap 7 (5-15); BUN 13 mg/dL (7-18); BUN/Creat Ratio 12.7 RATIO (10-20); Calcium,Total 9.1 mg/dL (8.5-10.1); Chloride 101 mmol/L (98-107); Creatinine, Serum 1.02 mg/dL (0.70-1.30); EST Glomerular Filtration Rate 91 mL/min (>60); Est Glom Filt Rate - Afr Amer 110 mL/min (>60); Globulin 2.6 g/dL (2.2-4.2); Glucose 109 mg/dL (74-106); Sodium Level 136 mmol/L (136-145); Uric Acid 8.4 mg/dL (3.5-7.2)
== END | disposition home or self-care (01) ==
LOC: MFPLAB 09:23
PROVIDERS: Family Provider Family Medicine; PCP Family Medicine; Referring Provider Family Medicine; Visit Provider Family Medicine
DX: M10.9 Gout, unspecified (principal); E66.9 Obesity, unspecified
CPT/HCPCS: 36415; 80053; 84550

== ENCOUNTER → 2019-03-20 09:59 | Outpatient (CLI) | payer BC, SELFPAY ==
[2019-03-20 12:51] LABS: ALB/GLOB Ratio 1.6 RATIO (0.9-2.4); AST(SGOT) 26 U/L (15-37); Alanine Aminotransfer ALT/SGPT 62 U/L (16-61); Albumin, Serum 4.5 g/dL (3.2-5.0); Alkaline Phosphatase 92 U/L (45-117); Anion Gap 6 (5-15); BUN 11 mg/dL (7-18); BUN/Creat Ratio 10.7 RATIO (10-20); Calcium,Total 8.8 mg/dL (8.5-10.1); Chloride 102 mmol/L (98-107); Creatinine, Serum 1.03 mg/dL (0.70-1.30); EST Glomerular Filtration Rate 90 mL/min (>60); Est Glom Filt Rate - Afr Amer 109 mL/min (>60); Globulin 2.8 g/dL (2.2-4.2); Glucose 83 mg/dL (74-106); Potassium 3.8 mmol/L (3.5-5.1); Protein, Total 7.3 g/dL (6.4-8.2); Sodium Level 136 mmol/L (136-145); Uric Acid 7.9 mg/dL (3.5-7.2)
== END ==
PROVIDERS: Family Provider Family Medicine; PCP Family Medicine; Referring Provider Family Medicine; Visit Provider Family Medicine
DX: E66.9 Obesity, unspecified (principal); M10.9 Gout, unspecified
CPT/HCPCS: 36415; 80053; 84550

== ENCOUNTER → 2019-10-02 08:14 | Outpatient (CLI) | payer BC, SELFPAY ==
[2019-10-02 10:13] LABS: ALB/GLOB Ratio 1.5 RATIO (0.9-2.4); AST(SGOT) 27 U/L (15-37); Alanine Aminotransfer ALT/SGPT 50 U/L (16-61); Albumin, Serum 4.4 g/dL (3.2-5.0); Alkaline Phosphatase 88 U/L (45-117); Anion Gap 4 (5-15); BUN 15 mg/dL (7-18); BUN/Creat Ratio 16.6 RATIO (10-20); Calcium,Total 8.9 mg/dL (8.5-10.1); Chloride 104 mmol/L (98-107); EST Glomerular Filtration Rate 104 mL/min (>60); Est Glom Filt Rate - Afr Amer 126 mL/min (>60); Globulin 2.9 g/dL (2.2-4.2); Glucose 104 mg/dL (74-106); Potassium 3.8 mmol/L (3.5-5.1); Protein, Total 7.3 g/dL (6.4-8.2); Sodium Level 137 mmol/L (136-145); Uric Acid 5.9 mg/dL (3.5-7.2)
== END ==
PROVIDERS: PCP Family Medicine; Referring Provider Family Medicine; Visit Provider Family Medicine
DX: I10 Essential (primary) hypertension (principal); M10.9 Gout, unspecified
CPT/HCPCS: 36415; 80053; 84550

== ENCOUNTER → 2019-10-03 08:05 | Outpatient (CLI) | payer BC, SELFPAY | PROVIDERS: PCP Family Medicine; Referring Provider Family Medicine; Visit Provider Family Medicine | DX: R73.09 Other abnormal glucose (principal) | CPT/HCPCS: 36415; 83036 ==

== ENCOUNTER → 2020-01-07 16:55 | Outpatient (CLI) | payer BC, SELFPAY | PROVIDERS: PCP Family Medicine; Visit Provider Family Medicine | DX: Z20.828 Contact with and (suspected) exposure to other viral communicable diseases (principal) | CPT/HCPCS: 87635; U0003 ==

== ENCOUNTER → 2020-04-23 08:05 | Outpatient (CLI) | payer BC, SELFPAY ==
[2020-04-23 10:42] LABS: ALB/GLOB Ratio 1.4 RATIO (0.9-2.4); AST(SGOT) 27 U/L (15-37); Alanine Aminotransfer ALT/SGPT 59 U/L (16-61); Albumin, Serum 4.3 g/dL (3.2-5.0); Alkaline Phosphatase 88 U/L (45-117); Anion Gap 4 (5-15); BUN 18 mg/dL (7-18); BUN/Creat Ratio 20.3 RATIO (10-20); Calcium,Total 9.1 mg/dL (8.5-10.1); Chloride 103 mmol/L (98-107); Creatinine, Serum 0.88 mg/dL (0.70-1.30); EST Glomerular Filtration Rate 106 mL/min (>60); Est Glom Filt Rate - Afr Amer 129 mL/min (>60); Globulin 3.1 g/dL (2.2-4.2); Glucose 91 mg/dL (74-106); Potassium 3.7 mmol/L (3.5-5.1); Protein, Total 7.4 g/dL (6.4-8.2); Sodium Level 137 mmol/L (136-145)
== END ==
PROVIDERS: PCP Family Medicine; Referring Provider Family Medicine; Visit Provider Family Medicine
DX: M10.9 Gout, unspecified (principal); I10 Essential (primary) hypertension
CPT/HCPCS: 36415; 80053; 84550

== ENCOUNTER → 2020-07-21 08:06 | Outpatient (CLI) | payer BC, SELFPAY | PROVIDERS: PCP Family Medicine; Referring Provider Family Medicine; Visit Provider Family Medicine | DX: Z00.00 Encounter for general adult medical examination without abnormal findings (principal) ==

== ENCOUNTER → 2020-07-29 09:05 | Outpatient (CLI) | payer BC, SELFPAY ==
--- NOTE | 2020-07-29 09:08 | RAD_ITS ---
STUDY: X-RAY CHEST REASON FOR EXAM: Male, 29 years old. BRONCHITIS TECHNIQUE: PA and lateral views of the chest. COMPARISON: None. FINDINGS: The lungs are clear and expanded. There is no demonstrated pleural abnormality. Normal size heart. Normal mediastinum and evelyn. Normal visualized pulmonary arteries. Normal visualized aortic arch and descending thoracic aorta. Normal visualized thoracic spine. Normal visualized ribs, clavicles, and shoulders. There is no demonstrated abnormality of the visualized soft tissue structures of the upper abdomen. RAD/Chest PA and Lateral IMPRESSION: Normal x-ray examination of the chest. Electronically Signed: Damaris Oconnor MD at 2:25 EDT , Service support ,
[2020-07-29 11:37] LABS: D-Dimer Quantitative (DVT/PE) <= 0.27 FEU/ug/m (0.27-0.49)
== END ==
PROVIDERS: PCP Family Medicine; Referring Provider Family Medicine; Visit Provider Family Medicine
DX: J40 Bronchitis, not specified as acute or chronic (principal)
CPT/HCPCS: 36415; 71046; 85379

== ENCOUNTER → 2020-08-08 12:27 | Outpatient (CLI) | payer BC, SELFPAY ==
--- NOTE | 2020-08-08 12:30 | ECHOCS_ITS ---
Reason For Study: SOB Procedure This was a 2D Doppler, Color Flow transthoracic echocardiogram. The study was technically difficult. Contrast injection was performed. Exam performed in department. Left Ventricle Based upon the 2D echocardiographic and contrast enhanced images obtained there appears to be grossly normal left ventricular size, wall motion, and systolic function. The estimated ejection fraction is 65 %. No evidence for diastolic dysfunction. Right Ventricle Normal RV size. Normal systolic function. Atria Normal left atrium. Normal right atrium. No doppler evidence for ASD. Mitral Valve There is no mitral annular calcification. Normal mitral valve. Trivial mitral valve insufficiency. Tricuspid Valve Normal tricuspid valve. Trivial tricuspid valve insufficiency. Unable to estimate RV systolic pressure/pulmonary artery pressure due to technically difficult study. Aortic Valve Trisinus/trileaflet aortic valve. Normal aortic valve. Pulmonic Valve The pulmonic valve is not well visualized. Great Vessels Normal sized aortic root. Pericardium/Pleural No pericardial effusion. Medication Diluted definity 2ml given slow IV push to enhance endocardial definition. MMode/2D Measurements & Calculations LVIDd: 4.5 cm IVSd: 1.4 cm Ao root diam: 2.5 cm LVIDs: 2.6 cm LVPWd: 1.3 cm RVDd: 2.7 cm FS: 41.9 % LAV(MOD-bp): 40.0 ml LVAd ap4: 30.4 cm2 SV(MOD-sp4): 61.2 ml LAV(MOD-bp) Indexed: 18.3 ml/m2 LVLd ap4: 8.1 cm LAV(MOD-sp2): 40.9 ml EDV(MOD-sp4): 94.4 ml LAV(MOD-sp4): 35.3 ml EDV(sp4-el): 97.6 ml LVAs ap4: 15.9 cm2 LVLs ap4: 6.4 cm ESV(MOD-sp4): 33.2 ml ESV(sp4-el): 33.6 ml EF(MOD-sp4): 64.8 % EF(sp4-el): 65.6 % SV(sp4-el): 64.0 ml LA A4 area: 15.8 cm2 LA dimension(2D): 3.4 cm RA A4 area: 10.8 cm2 Doppler Measurements & Calculations MV E max jaden: 94.4 cm/sec Lat Peak E' Jaden: 16.3 cm/sec Med Peak E' Jaden: 11.7 cm/sec MV A max jaden: 71.3 cm/sec E/E' lat: 5.8 E/E' med: 8.1 MV E/A: 1.3 Ao V2 max: 152.7 cm/sec LV V1 max: 125.3 cm/sec PA V2 max: 121.3 cm/sec Ao max P.3 mmHg LV V1 max P.3 mmHg Ao V2 mean: 103.6 cm/sec Ao mean P.7 mmHg Ao V2 VTI: 25.2 cm ECHO/Echo Complete W/ Contrast Interpretation Summary The study was technically difficult. Contrast injection was performed. Based upon the 2D echocardiographic and contrast enhanced images obtained there appears to be grossly normal left ventricular size, wall motion, and systolic function. The estimated ejection fraction is 65 %. Trivial mitral valve insufficiency. Trivial tricuspid valve insufficiency. Unable to estimate RV systolic pressure/pulmonary artery pressure due to techni darleen difficult study. No evidence for diastolic dysfunction. Ordering Physician: Jean Marie Jj Referring Physician: Jean Marie Jj Performed By: Leslie Shah RDCS, RVT
== END ==
LOC: CVS 12:28
PROVIDERS: PCP Family Medicine; Referring Provider Family Medicine; Visit Provider Family Medicine
DX: R06.02 Shortness of breath (principal)
CPT/HCPCS: 93306; Q9957; A4216; C8929; J3490

== ENCOUNTER → 2021-01-22 08:29 | Outpatient (CLI) | payer BC, SELFPAY | PROVIDERS: PCP Family Medicine; Referring Provider Family Medicine; Visit Provider Family Medicine | DX: Z00.00 Encounter for general adult medical examination without abnormal findings (principal) ==

== ENCOUNTER → 2021-07-24 | Outpatient (CLI) | payer BC, SELFPAY ==
[2021-07-24 10:17] LABS: Absolute Lymphocyte Count 1.65 X10^3/uL (0.83-4.51); Absolute Neutrophil Count 3.5 X10^3/uL (2.0-7.7); Basophil# 0.02 X10^3/uL; Basophil% 0.4 % (0-1); Eosinophil# 0.09 X10^3/uL; Eosinophils% 1.6 % (0-5); Hematocrit 43.9 % (40-54); Hemoglobin 14.8 g/dL (13.0-16.5); Lymphocyte # 1.65 X10^3/ul (0.83-4.51); Lymphocyte % 29.2 % (19-41); Mean Corp Hgb Conc 33.7 g/dL (32-36); Mean Corpuscular Hgb 27.8 pg (27.0-32.0); Mean Corpuscular Volume 82.4 fL (80-94); Mean Platelet Vol. 11.3 fl (6.2-12.0); Monocyte# 0.41 X10^3/uL; Monocyte% 7.2 % (0-10); NRBC Flagged by Analyzer 0 % (0-5); Neutrophil # 3.47 X10^3/uL (2.7-7.7); Neutrophil % 61.2 % (47-70); Platelet Count 277 K/mm3 (150-450); RBC Distribution Width CV 12.9 % (11.6-14.6); RBC Distribution Width SD 38.2 fl (35.1-43.9); Red Blood Count 5.33 M/mm3 (4.6-6.2); White Blood Count 5.7 K/mm3 (4.4-11.0)
[2021-07-24 10:44] LABS: ALB/GLOB Ratio 1.3 RATIO (0.9-2.4); AST(SGOT) 25 U/L (15-37); Alanine Aminotransfer ALT/SGPT 70 U/L (16-61); Albumin, Serum 4.4 g/dL (3.2-5.0); Alkaline Phosphatase 102 U/L (45-117); Anion Gap 7 (5-15); BUN 23 mg/dL (7-18); BUN/Creat Ratio 21.5 RATIO (10-20); Calcium,Total 9.3 mg/dL (8.5-10.1); Chloride 105 mmol/L (98-107); Cholesterol 134 mg/dL (200); Creatinine, Serum 1.07 mg/dL (0.70-1.30); EST Glomerular Filtration Rate 85 mL/min (>60); Est Glom Filt Rate - Afr Amer 102 mL/min (>60); Globulin 3.5 g/dL (2.2-4.2); Glucose 100 mg/dL (74-106); High Density Lipoprotein 32 mg/dL; Potassium 3.7 mmol/L (3.5-5.1); Protein, Total 7.9 g/dL (6.4-8.2); Sodium Level 138 mmol/L (136-145); Thyroid Stim Hormone (TSH) 3.32 uIU/mL (0.358-3.74); Triglycerides 98 mg/dL; Uric Acid 9.4 mg/dL (3.5-7.2); Very Low Density Lipoprotein 20 mg/dL (5-40)
== END | disposition home or self-care (01) ==
LOC: MFPLAB 08:20
PROVIDERS: PCP Family Medicine; Visit Provider Family Medicine
DX: I10 Essential (primary) hypertension (principal); M10.9 Gout, unspecified
CPT/HCPCS: 36415; 80053; 80061; 84443; 84550; 85025

== ENCOUNTER → 2022-03-04 | Outpatient (CLI) | payer BC, SELFPAY ==
[2022-03-04 10:04] LABS: Absolute Lymphocyte Count 1.77 X10^3/uL (0.83-4.51); Absolute Neutrophil Count 4.1 X10^3/uL (2.0-7.7); Basophil# 0.03 X10^3/uL; Basophil% 0.5 % (0-1); Eosinophils% 1.5 % (0-5); Hematocrit 40.2 % (40-54); Hemoglobin 13.7 g/dL (13.0-16.5); Lymphocyte # 1.77 X10^3/ul (0.83-4.51); Lymphocyte % 27.3 % (19-41); Mean Corp Hgb Conc 34.1 g/dL (32-36); Mean Corpuscular Hgb 28.8 pg (27.0-32.0); Mean Corpuscular Volume 84.6 fL (80-94); Mean Platelet Vol. 11.1 fl (6.2-12.0); Monocyte% 7.7 % (0-10); NRBC Flagged by Analyzer 0 % (0-5); Neutrophil # 4.07 X10^3/uL (2.7-7.7); Neutrophil % 62.7 % (47-70); Platelet Count 271 K/mm3 (150-450); RBC Distribution Width SD 39.9 fl (35.1-43.9); Red Blood Count 4.75 M/mm3 (4.6-6.2); White Blood Count 6.5 K/mm3 (4.4-11.0)
[2022-03-04 11:06] LABS: ALB/GLOB Ratio 1.5 RATIO (0.9-2.4); AST(SGOT) 28 U/L (15-37); Alanine Aminotransfer ALT/SGPT 67 U/L (16-61); Albumin, Serum 4.4 g/dL (3.2-5.0); Alkaline Phosphatase 86 U/L (45-117); Anion Gap 8 (5-15); BUN 15 mg/dL (7-18); BUN/Creat Ratio 15.9 RATIO (10-20); Calcium,Total 9.2 mg/dL (8.5-10.1); Chloride 104 mmol/L (98-107); Cholesterol 135 mg/dL (200); Creatinine, Serum 0.94 mg/dL (0.70-1.30); EST Glomerular Filtration Rate 97 mL/min (>60); Est Glom Filt Rate - Afr Amer 118 mL/min (>60); Globulin 2.9 g/dL (2.2-4.2); Glucose 96 mg/dL (74-106); High Density Lipoprotein 38 mg/dL; Potassium 3.9 mmol/L (3.5-5.1); Protein, Total 7.3 g/dL (6.4-8.2); Sodium Level 138 mmol/L (136-145); Thyroid Stim Hormone (TSH) 3.01 uIU/mL (0.358-3.74); Triglycerides 75 mg/dL; Uric Acid 6.8 mg/dL (3.5-7.2); Very Low Density Lipoprotein 15 mg/dL (5-40)
== END | disposition home or self-care (01) ==
LOC: MFPLAB 08:21
PROVIDERS: PCP Family Medicine; Referring Provider Family Medicine; Visit Provider Family Medicine
DX: I10 Essential (primary) hypertension (principal)
CPT/HCPCS: 36415; 80053; 80061; 84443; 84550; 85025

== ENCOUNTER → 2022-09-03 | Outpatient (CLI) | payer BC, SELFPAY ==
[2022-09-03 17:45] LABS: Absolute Lymphocyte Count 1.54 X10^3/uL (0.83-4.51); Absolute Neutrophil Count 2.4 X10^3/uL (2.0-7.7); Basophil# 0.03 X10^3/uL; Basophil% 0.7 % (0-1); Eosinophil# 0.07 X10^3/uL; Eosinophils% 1.6 % (0-5); Hematocrit 41.9 % (40-54); Hemoglobin 14.2 g/dL (13.0-16.5); Lymphocyte # 1.54 X10^3/ul (0.83-4.51); Lymphocyte % 34.7 % (19-41); Mean Corp Hgb Conc 33.9 g/dL (32-36); Mean Corpuscular Hgb 29.2 pg (27.0-32.0); Mean Platelet Vol. 11.4 fl (6.2-12.0); Monocyte# 0.39 X10^3/uL; Monocyte% 8.8 % (0-10); NRBC Flagged by Analyzer 0 % (0-5); Platelet Count 232 K/mm3 (150-450); RBC Distribution Width CV 12.7 % (11.6-14.6); RBC Distribution Width SD 39.2 fl (35.1-43.9); Red Blood Count 4.87 M/mm3 (4.6-6.2); White Blood Count 4.4 K/mm3 (4.4-11.0)
[2022-09-03 18:17] LABS: ALB/GLOB Ratio 1.1 RATIO (0.9-2.4); AST(SGOT) 36 U/L (15-37); Alanine Aminotransfer ALT/SGPT 64 U/L (16-61); Alkaline Phosphatase 81 U/L (45-117); Anion Gap 5 (5-15); BUN 15 mg/dL (7-18); BUN/Creat Ratio 15.5 RATIO (10-20); Chloride 109 mmol/L (98-107); Cholesterol 142 mg/dL (200); Creatinine, Serum 0.97 mg/dL (0.70-1.30); EST Glomerular Filtration Rate 94 mL/min (>60); Est Glom Filt Rate - Afr Amer 114 mL/min (>60); Globulin 3.6 g/dL (2.2-4.2); Glucose 98 mg/dL (74-106); High Density Lipoprotein 30 mg/dL; Protein, Total 7.6 g/dL (6.4-8.2); Sodium Level 139 mmol/L (136-145); Thyroid Stim Hormone (TSH) 3.56 uIU/mL (0.358-3.74); Triglycerides 94 mg/dL; Uric Acid 10.4 mg/dL (3.5-7.2); Very Low Density Lipoprotein 19 mg/dL (5-40)
== END | disposition home or self-care (01) ==
LOC: MFPLAB 14:55
PROVIDERS: PCP Family Medicine; Visit Provider Family Medicine
DX: I10 Essential (primary) hypertension (principal); M10.9 Gout, unspecified
CPT/HCPCS: 36415; 80053; 80061; 84443; 84550; 85025

== ENCOUNTER → 2023-05-20 | Outpatient (CLI) | payer BC, SELFPAY ==
[2023-05-20 10:00] LABS: Absolute Lymphocyte Count 1.94 X10^3/uL (0.83-4.51); Absolute Neutrophil Count 2.8 X10^3/uL (2.0-7.7); Basophil# 0.02 X10^3/uL; Basophil% 0.4 % (0-1); Eosinophil# 0.09 X10^3/uL; Eosinophils% 1.7 % (0-5); Hematocrit 41.6 % (40-54); Hemoglobin 14.1 g/dL (13.0-16.5); Lymphocyte # 1.94 X10^3/ul (0.83-4.51); Lymphocyte % 36.5 % (19-41); Mean Corp Hgb Conc 33.9 g/dL (32-36); Mean Corpuscular Hgb 28.8 pg (27.0-32.0); Mean Corpuscular Volume 84.9 fL (80-94); Monocyte# 0.47 X10^3/uL; Monocyte% 8.8 % (0-10); NRBC Flagged by Analyzer 0 % (0-5); Neutrophil # 2.79 X10^3/uL (2.7-7.7); Neutrophil % 52.4 % (47-70); Platelet Count 215 K/mm3 (150-450); RBC Distribution Width CV 12.6 % (11.6-14.6); RBC Distribution Width SD 38.5 fl (35.1-43.9); White Blood Count 5.3 K/mm3 (4.4-11.0)
[2023-05-20 11:08] LABS: ALB/GLOB Ratio 1.2 RATIO (0.9-2.4); AST(SGOT) 36 U/L (15-37); Alanine Aminotransfer ALT/SGPT 80 U/L (16-61); Albumin, Serum 4.1 g/dL (3.2-5.0); Alkaline Phosphatase 76 U/L (45-117); Anion Gap 7 (5-15); BUN 13 mg/dL (7-18); BUN/Creat Ratio 13.7 RATIO (10-20); Calcium,Total 8.9 mg/dL (8.5-10.1); Chloride 105 mmol/L (98-107); Cholesterol 135 mg/dL (200); Creatinine, Serum 0.95 mg/dL (0.70-1.30); EST Glomerular Filtration Rate 96 mL/min (>60); Est Glom Filt Rate - Afr Amer 116 mL/min (>60); Globulin 3.3 g/dL (2.2-4.2); Glucose 92 mg/dL (74-106); High Density Lipoprotein 36 mg/dL; Magnesium 2.2 mg/dL (1.6-2.6); Potassium 3.7 mmol/L (3.5-5.1); Protein, Total 7.4 g/dL (6.4-8.2); Sodium Level 139 mmol/L (136-145); Thyroid Stim Hormone (TSH) 4.42 uIU/mL (0.358-3.74); Triglycerides 82 mg/dL; Uric Acid 10.4 mg/dL (3.5-7.2); Very Low Density Lipoprotein 16 mg/dL (5-40)
== END | disposition home or self-care (01) ==
LOC: MFPLAB 08:49
PROVIDERS: PCP Family Medicine; Visit Provider Family Medicine
DX: I10 Essential (primary) hypertension (principal)
CPT/HCPCS: 36415; 80053; 80061; 83735; 84443; 84550; 85025

== ENCOUNTER 2023-11-11 15:32 | Outpatient (CLI) | payer BC, SELFPAY ==
[2023-11-11 15:36] LABS: Bacteria 0 SEEN /hpf (None Seen); Mucous, Urine 0 SEEN /hpf (<or=2+); Red Blood Cells-Urine 0 SEEN /hpf (0-5); Squamous Epithelial Cells - UA 0 SEEN /hpf (0-5); White Blood Cells 0 SEEN /hpf (0-5)
[2023-11-11 17:33] LABS: Color, Urine Yellow (Yellow); Glucose, Dipstick Normal (Normal); Ketone-Dipstick Negative (Negative); Leukocyte Esterase-Dipstick Negative /ul (Negative); Nitrite-Dipstick Negative (Negative); Occult Blood-Urine Negative /ul (Negative); Protein-Dipstick Negative (Negative); Urine Bilirubin Dipstick Negative (Negative); Urine Clarity Sl. Cloudy (Clear); Urine Urobilinogen Normal (Normal)
[2023-11-11 17:41] LABS: Absolute Lymphocyte Count 1.31 X10^3/uL (0.83-4.51); Absolute Neutrophil Count 2.6 X10^3/uL (2.0-7.7); Basophil# 0.02 X10^3/uL; Basophil% 0.5 % (0-1); Eosinophil# 0.05 X10^3/uL; Eosinophils% 1.2 % (0-5); Hematocrit 42.8 % (40-54); Hemoglobin 14.5 g/dL (13.0-16.5); Lymphocyte # 1.31 X10^3/ul (0.83-4.51); Lymphocyte % 30.8 % (19-41); Mean Corp Hgb Conc 33.9 g/dL (32-36); Mean Corpuscular Hgb 29.1 pg (27.0-32.0); Mean Corpuscular Volume 85.8 fL (80-94); Mean Platelet Vol. 10.9 fl (6.2-12.0); Monocyte# 0.32 X10^3/uL; Monocyte% 7.5 % (0-10); NRBC Flagged by Analyzer 0 % (0-5); Neutrophil # 2.55 X10^3/uL (2.7-7.7); Neutrophil % 59.8 % (47-70); Platelet Count 202 K/mm3 (150-450); RBC Distribution Width CV 12.8 % (11.6-14.6); RBC Distribution Width SD 39.6 fl (35.1-43.9); Red Blood Count 4.99 M/mm3 (4.6-6.2); White Blood Count 4.3 K/mm3 (4.4-11.0)
[2023-11-11 18:18] LABS: ALB/GLOB Ratio 1.3 RATIO (0.9-2.4); AST(SGOT) 46 U/L (15-37); Alanine Aminotransfer ALT/SGPT 76 U/L (16-61); Albumin, Serum 4.2 g/dL (3.2-5.0); Alkaline Phosphatase 80 U/L (45-117); Anion Gap 6 (5-15); BUN 13 mg/dL (7-18); BUN/Creat Ratio 13.4 RATIO (10-20); Calcium,Total 9.3 mg/dL (8.5-10.1); Chloride 107 mmol/L (98-107); Creatinine, Serum 0.97 mg/dL (0.70-1.30); EST Glomerular Filtration Rate 93 mL/min (>60); Est Glom Filt Rate - Afr Amer 113 mL/min (>60); Globulin 3.3 g/dL (2.2-4.2); Glucose 102 mg/dL (74-106); Protein, Total 7.5 g/dL (6.4-8.2); Sodium Level 138 mmol/L (136-145); T4 Free Direct 0.97 ng/dL (0.76-1.46); Uric Acid 8.5 mg/dL (3.5-7.2)
[2023-11-16 18:08] LABS: Anti-Thyroglobulin AB < 1.0 IU/mL (0.0-0.9); Thyroglobulin, Serum Qt. 12.2 ng/mL (1.4-29.2)
== END 2023-11-11 23:59 | disposition home or self-care (01) ==
PROVIDERS: PCP Family Medicine; Referring Provider Family Medicine; Visit Provider Family Medicine
DX: I10 Essential (primary) hypertension (principal); R79.89 Other specified abnormal findings of blood chemistry; M10.9 Gout, unspecified
CPT/HCPCS: 36415; 80053; 81001; 84432; 84439; 84443; 84550; 85025; 86800

== ENCOUNTER 2023-11-27 18:11 | Emergency (ER) | payer BC, SELFPAY ==
[2023-11-27 18:14] VITALS: BP 175/114; PULSE 100; RESP 18; TEMP 36.2; O2SAT 100; BMI 38.1
--- NOTE | 2023-11-27 19:33 | EX.ED.DYSGE1 ---
HPI <LAZARO Bernabe - Last Filed: 11/27/23 19:46> History of Present Illness Chief Complaint: Rash Narrative Narrative: Patient a 33-year-old male with history of hypertension who presents [facility] the main [facility] part for 2 complaints. Patient stepped on a duc nail when he was play with his son on the carpet. He was not wearing any shoes or socks. He does have a nail with him. Patient also has a rash to his left leg is more red and swollen. Patient denies any fever or chills. Patient states in the earlier in the week he was feeling chilled, body aches. However that is completed. Patient denies any recent travel, blood clotting disorders, recent trauma recent surgery, history of blood clots in legs or lungs. PFSH <LAZARO Bernabe - Last Filed: 11/27/23 19:46> [facility] Home Medications ?Medication ?Instructions ?Recorded ?Last Taken ?Type naproxen 500 mg tablet 500 mg PO BID #14 tabs 08/10/17 Unknown Rx ondansetron 4 mg disintegrating 4 mg PO Q8H PRN PRN Nausea #10 tabs 08/10/17 Unknown Rx tablet oxycodone-acetaminophen 5 mg-325 1 tab PO Q6H PRN PRN Pain 5 days 08/10/17 Unknown Rx mg tablet ##20 cephalexin 500 mg capsule 500 mg PO Q6 #40 CAPSULES 11/27/23 Unknown Rx sulfamethoxazole 800 1 tab PO DAILY 10 days #10 tabs 11/27/23 Unknown Rx mg-trimethoprim 160 mg tablet (Bactrim DS) Allergy/AdvReac Type Severity Reaction Status Date / Time No Known Allergies Allergy Verified 11/27/23 18:13 Social History Smoking Status: Never smoker ROS <LAZARO Bernabe - Last Filed: 11/27/23 19:46> ROS ED ROS Narrative Constitutional: Negative for fever, chills, weight loss, weakness Eyes: Negative for vision loss, vision change, double vision ENT: Negative for any sore throat, ear pain, congestion Cardiovascular: Negative for any chest pain, tightness, palpitations Respiratory: Negative for any cough, sputum production, hemoptysis, dyspnea, dyspnea on exertion, orthopnea Gastrointestinal: Negative for any abdominal pain, nausea, vomiting, diarrhea, constipation, blood in stool, blood in vomit : Negative for any urinary frequency, dysuria, retention, blood in urine Muscle skeletal: Negative for any neck pain, back pain. Positive right foot pain Neurological: Negative for any headache, syncope, dizziness Skin: Negative for any rashes, itching, abrasions, lacerations. Positive redness, pain to the left lower leg Psychiatric: Negative for any depression, anxiety, stress, suicidal ideation, homicidal ideation Hematologic: Negative for any excessive bruising, easy bleeding EXAM <LAZARO Bernabe - Last Filed: 11/27/23 19:46> Physical Exam Narrative Exam Narrative: Vital signs reviewed. Extremities: Patient does have some erythema, edema to the left lower extremity, there is some areas just below the knee that are more vesicular,. Are more raised. There is no deep tissue infection or abscess, drainage. No signs of gross trauma or deformity. Active full range of motion of all extremities. Patient does have a small puncture wound to the heel, no pain on palpation. No signs of cellulitis. Neuro: Cranial nerves II through XII intact, no focal neurological deficits. Skin: Clean dry and intact with no rash, purpura, petechiae, vesicles or pustules. Backs/flank: No CVA tenderness, no midline spinal tenderness, no deformity. Psych: Normal mood and affect. No SI, HI or acute psychosis. Const Vital Signs: 11/27/23 18:14 Temperature 97.1 F L Temperature Source Temporal Pulse Rate 100 Respiratory Rate 18 Blood Pressure 175/114 H Blood Pressure Mean 134 Pulse Ox 100 Oxygen Delivery Method Room Air Positive well nourished and well developed General Appearance ED: well developed <Dr. Kal Ortega DO - Last Filed: 11/27/23 19:39> Physical Exam Const Vital Signs: 11/27/23 18:14 Temperature 97.1 F L Temperature Source Temporal Pulse Rate 100 Respiratory Rate 18 Blood Pressure 175/114 H Blood Pressure Mean 134 Pulse Ox 100 Oxygen Delivery Method Room Air MDM <LAZARO Bernabe - Last Filed: 11/27/23 19:46> MDM Treatment and Re-Evaluation :: Differential diagnosis includes however is not limited to: Foreign body, puncture wound, cellulitis, DVT Patient appears to be in no obvious respiratory distress vital signs are stable, nontoxic-appearing. Presenting to the emergency department with complaints of left leg rash, redness as well as stepping on a needle to the right foot. I did offer an x-ray to the right foot he refused. Patient will be given a tetanus vaccination. This is well-appearing. Patient's left lower extremity is concerning for cellulitis, patient replaced on Keflex and Bactrim. I will also order a DVT study just to ensure there is no DVT. He is happy with the plan of care, instructed return for any worsening redness fever chills nausea vomiting. Patient stable for discharge <Dr. Kal Ortega, DO - Last Filed: 11/27/23 19:39> [facility] MDM Narrative Medical decision making narrative: I have personally performed a face to face assessment of the patient and have reviewed the CULLEN Note. I performed a substantive portion of the visit including all aspects of the following. My walton findings include: History is [patient presents to the emergency department because he stepped on a sewing needle with his right foot that was stuck on the carpet. Patient states that he has a needle with him and it is completely intact. Unsure of his last tetanus shot. Also patient 5 days ago noticed some redness to the left leg. He states he started feeling chilled and fatigued and no energy. 2 days ago he started having other areas of increased redness to the left lower leg that he outlined with marker. Erythema has now spread beyond those fernandez that he made a couple days ago. He denies fevers. He has had chills. Patient states every time he gets sick his left leg gets red.] No PE risk factors. No recent travel or surgery or history of DVT. Exam is [HEENT-PERRLA, EOMI. Cranial nerves II through XII grossly intact. TMs clear. Mucous membranes moist. No adenopathy. Cardiovascular-regular rate and rhythm without murmur or ectopy Lungs-clear to auscultation, chest wall stable without crepitus or subcu emphysema Abdomen-normoactive bowel sounds, soft, nontender, no rebound or rigidity, no peritoneal signs. Extremities-intact ?4. Right foot-patient has a very small puncture wound over the plantar heel midfoot with no foreign bodies palpated within the wound. There is no bleeding. No erythema. Left leg-patient has diffuse soft tissue swelling and erythema with cellulitic changes of the left leg.] Medical Decison Making [initially recommended we obtain an x-ray of his right foot to rule out foreign body. Patient is adamant that he was able to retrieve the needle that punctured his foot and is intact and does not want an x-ray. Patient I believe has cellulitis of the left lower extremity. Will start patient on Keflex and Bactrim. Clinically looks well. I do not feel any blood work is indicated. Will also order a DVT study to be performed tomorrow as there are not available here today but suspicion for DVT is relatively low and I suspect symptoms related to the left leg are cellulitic in nature. Advised patient to return if high fevers, chills, increased redness and swelling or condition should worsen anyway] Other additions or changes: [None] Discharge Plan Triage Chief Complaint: Rash Other Complaint: Wound Check ED Midlevel Provider: Jose Marte ED Provider: Kal Ortega Dx/Rx/DC Orders Clinical Impression: Puncture wound, Cellulitis Instructions: Cellulitis Dc, ED Puncture Wound (General) Prescriptions: New cephalexin 500 mg capsule 500 mg PO Q6 Qty: 40 0RF sulfamethoxazole-trimethoprim [Bactrim DS] 800-160 mg tablet 1 tab PO DAILY 10 Days Qty: 10 0RF No Action oxycodone-acetaminophen 1 TABLET tablet 1 tab PO Q6H PRN PRN (Reason: Pain) 5 Days Qty: 20 0RF ondansetron 4 MG tablet 4 mg PO Q8H PRN PRN (Reason: Nausea) Qty: 10 0RF naproxen 500 MG tablet 500 mg PO BID Qty: 14 0RF Other Ambulatory Orders: Venous Duplex US, Unilateral (Stat) Facility: [facility] - Location: [facility] Ordered By: Jose Marte Primary Care Provider: Jean Marie Jj Referrals: Jean Marie Jj MD [Primary Care Provider] - Activity Restrictions/Additional Instructions: Please initially get a venous duplex to rule out a DVT. Take the antibiotics until finished. You were updated on your tetanus vaccine today Print Language: Vietnamese Disposition Disposition: Home, Self Care
[2023-11-27] MEDS: Diphth,Pertuss(Acell),Tet Vac 0.5 ML Vial IM (19:36)
[2023-11-27] MEDS: Cephalexin 250 MG Capsule 500 MG PO (19:40)
[2023-11-27] MEDS: Smz/Tmp Ds Tablet 1 TABLET PO (19:41)
[2023-11-27 19:55] VITALS: BP 135/76; PULSE 72; RESP 15; TEMP 36.8; O2SAT 97
== END 2023-11-27 19:56 | disposition home or self-care (01) ==
PROVIDERS: Emergency Provider Emergency Medicine; PCP Family Medicine; Visit Provider Emergency Medicine
DX: S91.331A Puncture wound without foreign body, right foot, initial encounter (principal); L03.116 Cellulitis of left lower limb; W45.0XXA Nail entering through skin, initial encounter; I10 Essential (primary) hypertension; Z53.29 Procedure and treatment not carried out because of patient's decision for other reasons; Z23 Encounter for immunization
CPT/HCPCS: 90471; 90715; 99284

== ENCOUNTER → 2023-11-28 | Outpatient (CLI) | payer BC, SELFPAY ==
--- NOTE | 2023-11-28 10:57 | VDLE_ITS ---
Reason For Study: LLE Swelling RIGHT LEFT CFV is compressible, spontaneous, phasic, GSV is normal. competent and demonstrates normal CFV is compressible, spontaneous, phasic, augmentation. competent, and demonstrates normal Procedure augmentation. This is a venous duplex using B-mode, color FV is compressible, spontaneous, phasic, flow and spectral Doppler. competent and demonstrates normal Exam performed in department. augmentation. The exam was diagnostic. POP V is compressible, spontaneous, phasic, competent and demonstrates normal augmentation. T/P Trunk is compressible. PTV is compressible. LT PerV is compressible. Lymph node noted in Lt Groin measuring approximately 3.05cm x 1.22cm. VL/Venous Duplex US, Unilateral Interpretation Summary Deep veins of the left lower extremity are patent and compressible segmentally. There is no evidence of left lower extremity deep vein thrombosis. The left great saphenous vein simón ears patent and compressible segmentally. Prominent left inguinal lymph node 3.05 x 1.22 cm Ordering Physician: Jose Marte Referring Physician: Jean Marie Jj Performed By: Mika Chino RVT
== END | disposition home or self-care (01) ==
LOC: CVS 10:49
PROVIDERS: PCP Family Medicine; Referring Provider Nurse Practitioner; Visit Provider Nurse Practitioner
DX: M79.89 Other specified soft tissue disorders (principal)
CPT/HCPCS: 93971

== ENCOUNTER → 2024-03-08 | Outpatient (CLI) | payer BC, SELFPAY ==
[2024-03-08 12:11] LABS: Absolute Lymphocyte Count 1.75 X10^3/uL (0.83-4.51); Basophil# 0.04 X10^3/uL; Basophil% 0.6 % (0-1); Eosinophil# 0.06 X10^3/uL; Hematocrit 42.9 % (40-54); Hemoglobin 14.9 g/dL (13.0-16.5); Lymphocyte # 1.75 X10^3/ul (0.83-4.51); Lymphocyte % 27.8 % (19-41); Mean Corp Hgb Conc 34.7 g/dL (32-36); Mean Corpuscular Hgb 29.5 pg (27.0-32.0); Monocyte# 0.45 X10^3/uL; Monocyte% 7.2 % (0-10); NRBC Flagged by Analyzer 0 % (0-5); Neutrophil # 3.95 X10^3/uL (2.7-7.7); Neutrophil % 62.8 % (47-70); Platelet Count 260 K/mm3 (150-450); RBC Distribution Width CV 12.8 % (11.6-14.6); RBC Distribution Width SD 38.7 fl (35.1-43.9); Red Blood Count 5.05 M/mm3 (4.6-6.2); White Blood Count 6.3 K/mm3 (4.4-11.0)
[2024-03-08 12:39] LABS: ALB/GLOB Ratio 1.3 RATIO (0.9-2.4); AST(SGOT) 25 U/L (15-37); Alanine Aminotransfer ALT/SGPT 56 U/L (16-61); Albumin, Serum 4.4 g/dL (3.2-5.0); Alkaline Phosphatase 78 U/L (45-117); Anion Gap 3 (5-15); BUN 14 mg/dL (7-18); BUN/Creat Ratio 14.1 RATIO (10-20); Calcium,Total 9.2 mg/dL (8.5-10.1); Chloride 108 mmol/L (98-107); Cholesterol 166 mg/dL (200); Creatinine, Serum 0.99 mg/dL (0.70-1.30); EST Glomerular Filtration Rate 91 mL/min (>60); Est Glom Filt Rate - Afr Amer 110 mL/min (>60); Globulin 3.4 g/dL (2.2-4.2); Glucose 99 mg/dL (74-106); High Density Lipoprotein 37 mg/dL; Magnesium 2.4 mg/dL (1.6-2.6); Protein, Total 7.8 g/dL (6.4-8.2); Sodium Level 138 mmol/L (136-145); T4 Free Direct 0.95 ng/dL (0.76-1.46); Triglycerides 205 mg/dL; Very Low Density Lipoprotein 41 mg/dL (5-40)
== END | disposition home or self-care (01) ==
LOC: MFPLAB 10:47
PROVIDERS: PCP Family Medicine; Referring Provider Family Medicine; Visit Provider Family Medicine
DX: I10 Essential (primary) hypertension (principal); R79.89 Other specified abnormal findings of blood chemistry; M10.9 Gout, unspecified
CPT/HCPCS: 36415; 80053; 80061; 83735; 84439; 84443; 84550; 85025

== ENCOUNTER → 2024-07-20 | Outpatient (CLI) | payer BC, SELFPAY ==
[2024-07-20 10:27] LABS: Absolute Lymphocyte Count 2.55 X10^3/uL (0.83-4.51); Absolute Neutrophil Count 3.1 X10^3/uL (2.0-7.7); Basophil# 0.04 X10^3/uL; Basophil% 0.6 % (0-1); Eosinophil# 0.12 X10^3/uL; Eosinophils% 1.9 % (0-5); Hematocrit 42.8 % (40-54); Hemoglobin 14.7 g/dL (13.0-16.5); Lymphocyte # 2.55 X10^3/ul (0.83-4.51); Lymphocyte % 39.7 % (19-41); Mean Corp Hgb Conc 34.3 g/dL (32-36); Mean Corpuscular Hgb 29.3 pg (27.0-32.0); Mean Corpuscular Volume 85.4 fL (80-94); Mean Platelet Vol. 11.2 fl (6.2-12.0); Monocyte# 0.58 X10^3/uL; NRBC Flagged by Analyzer 0 % (0-5); Neutrophil # 3.11 X10^3/uL (2.7-7.7); Neutrophil % 48.5 % (47-70); Platelet Count 245 K/mm3 (150-450); RBC Distribution Width CV 12.4 % (11.6-14.6); RBC Distribution Width SD 38.4 fl (35.1-43.9); Red Blood Count 5.01 M/mm3 (4.6-6.2); White Blood Count 6.4 K/mm3 (4.4-11.0)
[2024-07-20 10:57] LABS: ALB/GLOB Ratio 1.8 RATIO (0.9-2.4); AST(SGOT) 28 U/L (<=37); Alanine Aminotransfer ALT/SGPT 53 U/L (<=46); Albumin, Serum 4.6 g/dL (3.5-5.0); Alkaline Phosphatase 90 U/L (40-129); Anion Gap 12 (5-15); BUN 21 mg/dL (4-19); BUN/Creat Ratio 22.1 RATIO (10-20); Calcium,Total 9.6 mg/dL (7.6-11.0); Carbon Dioxide 24.3 mmol/L (21.0-32.0); Chloride 104 mmol/L (98-108); Cholesterol 136 mg/dL (<=200); Creatinine, Serum 0.95 mg/dL (0.70-1.20); EST Glomerular Filtration Rate 108 (>60); Globulin 2.6 g/dL (2.2-4.2); Glucose 93 mg/dL (70-99); High Density Lipoprotein 31 mg/dL; Low Density Lipoprotein Calc. 68 mg/dL; Potassium 3.7 mmol/L (3.3-5.1); Protein, Total 7.3 g/dL (5.9-8.4); Sodium Level 140 mmol/L (133-145); Total Bilirubin 0.82 mg/dL (0.00-1.30); Triglycerides 186 mg/dL; Very Low Density Lipoprotein 37 mg/dL (5-40); cholesterol:hdl ratio screen 4.35
== END | disposition home or self-care (01) ==
LOC: MFPLAB 08:11
PROVIDERS: PCP Family Medicine; Referring Provider Family Medicine; Visit Provider Family Medicine
DX: M10.9 Gout, unspecified (principal); I10 Essential (primary) hypertension; R79.89 Other specified abnormal findings of blood chemistry
CPT/HCPCS: 36415; 80053; 80061; 84439; 84443; 84550; 85025

== ENCOUNTER → 2025-01-18 | Outpatient (CLI) | payer BC, SELFPAY ==
[2025-01-18 08:36] LABS: Mucous, Urine 0 SEEN /hpf (<or=2+); Red Blood Cells-Urine 0 SEEN /hpf (0-5); Squamous Epithelial Cells - UA 0 SEEN /hpf (0-5)
[2025-01-18 10:17] LABS: Color, Urine Yellow (Yellow); Glucose, Dipstick Normal (Normal); Ketone-Dipstick Negative (Negative); Leukocyte Esterase-Dipstick Negative /ul (Negative); Nitrite-Dipstick Negative (Negative); Occult Blood-Urine Negative /ul (Negative); Protein-Dipstick 15 mg/dl (Negative); Specific Gravity, Urine 1.020 (1.002-1.030); Urine Bilirubin Dipstick Negative (Negative)
[2025-01-18 10:19] LABS: Hematocrit 35.6 % (40-54); Hemoglobin 12.7 g/dL (13.0-16.5); Immature Granulocytes Count 0.010 X10^3/uL (0.0-0.0); Mean Corp Hgb Conc 35.7 g/dL (32-36); Mean Corpuscular Volume 82.2 fL (80-94); Mean Platelet Vol. 10.8 fl (6.2-12.0); NRBC Flagged by Analyzer 0 % (0-5); Platelet Count 233 K/mm3 (150-450); RBC Distribution Width CV 12.6 % (11.6-14.6); RBC Distribution Width SD 37.4 fl (35.1-43.9); Red Blood Count 4.33 M/mm3 (4.6-6.2); White Blood Count 4.6 K/mm3 (4.4-11.0)
[2025-01-18 10:45] LABS: AST(SGOT) 32 U/L (<=37); Alanine Aminotransfer ALT/SGPT 71 U/L (<=46); Albumin, Serum 4.3 g/dL (3.5-5.0); Alkaline Phosphatase 86 U/L (40-129); Anion Gap 10 (5-15); BUN 14 mg/dL (4-19); BUN/Creat Ratio 15.0 RATIO (10-20); Calcium,Total 9.1 mg/dL (7.6-11.0); Carbon Dioxide 26.4 mmol/L (21.0-32.0); Chloride 103 mmol/L (98-108); Cholesterol 113 mg/dL (<=200); Globulin 2.5 g/dL (2.2-4.2); Glucose 109 mg/dL (70-99); Low Density Lipoprotein Calc. 68 mg/dL; Magnesium 2.1 mg/dL (1.5-2.2); Potassium 3.9 mmol/L (3.3-5.1); Triglycerides 96 mg/dL; Uric Acid 7.8 mg/dL (3.5-7.2); Very Low Density Lipoprotein 19 mg/dL (5-40); cholesterol:hdl ratio screen 4.23
[2025-01-21 10:51] LABS: Iron 95 ug/dL (65-175); Iron Binding Capacity,Total 292 ug/dL (250-450); Iron Binding Capacity,Unsat 197 ug/dL (228-428)
== END | disposition home or self-care (01) ==
LOC: MFPLAB 08:34
PROVIDERS: PCP Family Medicine; Visit Provider Family Medicine
DX: D64.9 Anemia, unspecified (principal); I10 Essential (primary) hypertension; R79.89 Other specified abnormal findings of blood chemistry; M10.9 Gout, unspecified
CPT/HCPCS: 36415; 80053; 80061; 81001; 83036; 83540; 83550; 83735; 84439; 84443; 84550; 85025

== ENCOUNTER → 2025-01-24 | Outpatient (CLI) | payer BC, SELFPAY ==
[2025-01-24 18:42] LABS: Iron 95 ug/dL (65-175); Iron Binding Capacity,Total 320 ug/dL (250-450); Iron Binding Capacity,Unsat 225 ug/dL (228-428); Vitamin B12 823 pg/mL (180-914)
== END | disposition home or self-care (01) ==
LOC: MTLAB 16:20
PROVIDERS: PCP Family Medicine; Referring Provider Family Medicine; Visit Provider Family Medicine
DX: D64.9 Anemia, unspecified (principal); R73.09 Other abnormal glucose
CPT/HCPCS: 36415; 82607; 83036; 83540; 83550